=== PATIENT | male | born 1950 | race Caucasian/White ===

== ENCOUNTER → 2017-07-29 11:36 | Outpatient (CLI) | payer OTHER, SELFPAY ==
[2017-07-29 12:05] LABS: Basophils % 0.4 % (0.1-2.0); Eosinophils # 0.1 K/mm3 (0.0-0.4); Eosinophils % 1.8 % (0.1-12.0); Hematocrit 50.5 % (42.0-52.0); Hemoglobin 15.7 g/dL (14.1-18.0); Lymphocytes # 2.5 K/mm3 (0.7-4.5); Lymphocytes % 35.1 K/mm3 (10-50); Mean Corpuscular HGB Conc 31.1 g/dL (31.8-35.4); Mean Corpuscular Hemoglobin 26.3 pg (27.0-31.2); Mean Corpuscular Volume 84.5 fl (80-94); Monocytes # 0.5 K/mm3 (0.1-1.0); Monocytes % 6.7 % (1.7-9.3); Platelet Count 205 K/mm3 (142-424); Red Blood Count 5.98 M/mm3 (4.60-6.20); Red Cell Distribution Width 14.5 % (11.5-17.5); White Blood Count 7.2 K/mm3 (4.8-10.8)
[2017-07-29 13:31] LABS: Blood Urea Nitrogen 12 mg/dL (7-18); Carbon Dioxide 28 mmol/L (21.0-32.0); Chloride 103 mmol/L (98-107); Estimated Glomerular Filt Rate 61 ml/min (>60); Free Thyroxine Index 2.3 ug/dL (5.93-13.13); GFR (African American) 74 ML/MIN (>60); Glucose 98 mg/dL (74-106); Sodium 139 mmol/L (136-145); T4 (Thyroxine) 6.9 ug/dl (4.7-13.3); Thyroid Stimulating Hormone 3.58 uIU/ml (0.358-3.740); Triiodothryronine (T3) Uptake 34 % (31-39)
[2017-07-30 12:18] LABS: Testosterone,Total 631 ng/dL (264-916)
== END ==
PROVIDERS: Visit Provider Physician Assistant
DX: R94.31 Abnormal electrocardiogram [ECG] [EKG] (principal); I25.10 Atherosclerotic heart disease of native coronary artery without angina pectoris; I48.91 Unspecified atrial fibrillation; Z95.1 Presence of aortocoronary bypass graft; E78.4 Other hyperlipidemia; R53.83 Other fatigue; K21.9 Gastro-esophageal reflux disease without esophagitis
CPT/HCPCS: 36415; 80048; 84403; 84436; 84443; 84479; 85025

== ENCOUNTER → 2017-08-10 08:18 | Outpatient (CLI) | payer OTHER, SELFPAY ==
--- NOTE | 2017-08-10 08:23 | CA_ITS ---
PROCEDURE: 2-D M-mode and color Doppler study INDICATIONS FOR THE TEST: Chest pain+ COPD Heart Murmur Tobacco Smoking Palpitations Fatigue+ Syncope Edema Hypertension Diabetes Mellitus Rheumatic Fever SOB+PATEL Obesity Hyperlipidemia+ Family History HD Additional History AFIB, STENT, CABG 03/10 PATIENT INFORMATION HEIGHT: 68 WEIGHT:187 GENDER: Male B/P:140/74 2-D/M-MODE INTERPRETATION: 2-D MEASUREMENTS OBSERVED VALUES IN CMS Right Ventricular Dimension (RVDd) 1.0 Interventricular Septum (Thickness)(IVsd) 5.7 Left Ventricular Internal Dimensions(LVIDd) 1.0 Left Ventricular Posterior Wall (Thickness)(LVPWd) 1.1 Aortic Root 3.2 Aortic Cusp Separation 2.2 Left Atrial Dimensions (LAD) 4.5 2D 1. Left atrium is moderately enlarged, left ventricle is normal size, there is mild concentric left ventricular hypertrophy, visually estimated ejection fraction approximately 40-45%, there is marked hypokinesis involving the basal septum, inferobasal and posterobasal wall. 2. The right atrium and right ventricle are normal size and contractility. 3. The aortic valve is minimally thickened and fibrosed. 4. The mitral and tricuspid valve leaflets are minimally thickened. 5. The pulmonic valve is poorly visualized 6. No significant pericardial effusion noted. DOPPLER INTERROGATION: Doppler interrogation of the aortic, mitral and tricuspid valvular presence of moderate mitral and mild tricuspid regurgitation, tricuspid and jet velocity insufficient for calculation of the right ventricular systolic pressure, grade 1 diastolic dysfunction seen with tissue Doppler evidence of raised left atrial pressure. CONCLUSION: 1. Moderately enlarged left atrium, normal left ventricular size, mild concentric left ventricular hypertrophy, visually estimated ejection fraction approximately 40-45% with multiple segmental wall motion abnormality described above, grade 1 diastolic dysfunction seen with tissue Doppler evidence of raised left atrial pressure. 2. Moderate mitral and mild tricuspid regurgitation 3. No significant pericardial effusion noted.
== END ==
PROVIDERS: PCP Internal Medicine Adolescent Medicine; Visit Provider Internal Medicine
DX: R94.31 Abnormal electrocardiogram [ECG] [EKG] (principal); Z95.1 Presence of aortocoronary bypass graft; I25.10 Atherosclerotic heart disease of native coronary artery without angina pectoris; I48.91 Unspecified atrial fibrillation; K21.9 Gastro-esophageal reflux disease without esophagitis; I11.9 Hypertensive heart disease without heart failure; E78.4 Other hyperlipidemia; R07.9 Chest pain, unspecified
CPT/HCPCS: 93017; 93306

== ENCOUNTER → 2018-06-12 09:20 | Outpatient (CLI) | payer MEDICARE, SELFPAY ==
[2018-06-12 11:20] LABS: Alanine Aminotransferase 47 U/L (12-78); Albumin Level 3.6 gm/dL (3.4-5.0); Alkaline Phosphatase 94 U/L (46-116); Aspartate Amino Transferase 26 U/L (15-37); Bilirubin,Direct 0.2 mg/dL (0.0-0.2); Bilirubin,Indirect 0.5 mg/dL (0.0-0.9); Bilirubin,Total 0.7 mg/dL (0.2-1.0); Chol/HDL Ratio 3.5 (1-3.5); Cholesterol 97 mg/dL (140-200); HDL Cholesterol 28 mg/dL (27-67); LDL Cholesterol 47 mg/dL (0-130); Total Protein,Serum 7.1 gm/dL (6.4-8.2); Triglycerides 110 mg/dL (30-200); VLDL Cholesterol 22 mg/dL (0-40)
== END ==
PROVIDERS: Visit Provider Internal Medicine
DX: I11.9 Hypertensive heart disease without heart failure; I25.10 Atherosclerotic heart disease of native coronary artery without angina pectoris; I48.91 Unspecified atrial fibrillation; K21.9 Gastro-esophageal reflux disease without esophagitis; R94.31 Abnormal electrocardiogram [ECG] [EKG]; Z95.1 Presence of aortocoronary bypass graft; E78.49 Other hyperlipidemia
CPT/HCPCS: 36415; 80061; 80076

== ENCOUNTER → 2018-11-03 13:51 | Outpatient (CLI) | payer MEDICARE, OTHER, SELFPAY ==
--- NOTE | 2018-11-03 13:56 | CA_ITS ---
PROCEDURE: 2-D M-mode and color Doppler study INDICATIONS FOR THE TEST: Chest pain+ COPD Heart Murmur Tobacco Smoking Palpitations Fatigue+ Syncope Edema Hypertension+Diabetes Mellitus Rheumatic Fever SOB+PATEL Obesity Hyperlipidemia+ Family History HD Additional History CABG, AFIB, GERD, ABN EKG, MOD MR /, AFIB PATIENT INFORMATION HEIGHT: 68 WEIGHT:182 GENDER: Male B/P:139/80 2-D/M-MODE INTERPRETATION: 2-D MEASUREMENTS OBSERVED VALUES IN CMS Right Ventricular Dimension (RVDd) 2.1 Interventricular Septum (Thickness)(IVsd) 1.2 Left Ventricular Internal Dimensions(LVIDd) 5.7 Left Ventricular Posterior Wall (Thickness)(LVPWd) 1.2 Aortic Root 3.4 Aortic Cusp Separation 2.1 Left Atrial Dimensions (LAD) 4.7 2D 1. Left atrium is moderately enlarged, left ventricle is normal size, mild concentric left ventricular hypertrophy, visually estimated ejection fraction 45%, inferior basal, posterior basal and basal septal wall on dyskinetic. 2. The right atrium and right ventricle are normal size and contractility. 3. The aortic valve is thickened and calcified leaflet continue to display mobility 4. The mitral and tricuspid valve leaflets are minimally thickened. 5. The pulmonic valve is poorly visualized. 6. No significant pericardial effusion noted. DOPPLER INTERROGATION: Doppler interrogation of the aortic, mitral and tricuspid valvular presence of mild aortic, moderate mitral and mild tricuspid regurgitation tricuspid regurgitation jet velocity is inadequate for calculation of the right ventricular systolic pressure, grade 1 diastolic dysfunction seen with tissue Doppler evidence of raised left atrial pressure. CONCLUSION: 1. Moderately enlarged left atrium, normal left ventricular size, mild concentric left ventricular hypertrophy, visually estimated ejection fraction of 45% with segmental wall motion abnormality described above, grade 1 diastolic dysfunction seen with tissue Doppler evidence of raised left atrial pressure. 2. Mild aortic, moderate mitral and mild tricuspid regurgitation. 3. No significant pericardial effusion noted.
== END ==
PROVIDERS: PCP Internal Medicine Adolescent Medicine; Visit Provider Nurse Practitioner Family
DX: I11.9 Hypertensive heart disease without heart failure; I25.10 Atherosclerotic heart disease of native coronary artery without angina pectoris; I34.0 Nonrheumatic mitral (valve) insufficiency; I48.91 Unspecified atrial fibrillation; K21.9 Gastro-esophageal reflux disease without esophagitis; R06.09 Other forms of dyspnea; R42 Dizziness and giddiness; R94.31 Abnormal electrocardiogram [ECG] [EKG]; Z95.1 Presence of aortocoronary bypass graft; E78.49 Other hyperlipidemia
CPT/HCPCS: 93306

== ENCOUNTER → 2018-11-10 11:27 | Outpatient (CLI) | payer MEDICARE, OTHER, SELFPAY ==
[2018-11-10 11:48] LABS: Basophils % 0.4 % (0.1-2.0); Eosinophils # 0.1 K/mm3 (0.0-0.4); Eosinophils % 1.7 % (0.1-12.0); Hematocrit 49.2 % (42.0-52.0); Hemoglobin 16.6 g/dL (14.1-18.0); Lymphocytes # 2.2 K/mm3 (0.7-4.5); Lymphocytes % 32.8 % (10-50); Mean Corpuscular HGB Conc 33.7 g/dL (31.8-35.4); Mean Corpuscular Hemoglobin 28.1 pg (27.0-31.2); Mean Corpuscular Volume 83.3 fl (80-94); Mean Platelet Volume 7.4 fl (7.4-10.4); Monocytes # 0.5 K/mm3 (0.1-1.0); Monocytes % 6.6 % (1.7-9.3); Neutrophils % 58.5 % (37.0-80.0); Platelet Count 186 K/mm3 (142-424); Red Cell Distribution Width 13.2 % (11.5-17.5); White Blood Count 6.8 K/mm3 (4.8-10.8)
[2018-11-10 15:47] LABS: Alanine Aminotransferase 45 U/L (12-78); Albumin Level 4.1 gm/dL (3.4-5.0); Alkaline Phosphatase 99 U/L (46-116); Anion Gap 15.9 mEq/L (5-15); Aspartate Amino Transferase 29 U/L (15-37); Bilirubin,Direct 0.2 mg/dL (0.0-0.2); Bilirubin,Indirect 0.7 mg/dL (0.0-0.9); Bilirubin,Total 0.9 mg/dL (0.2-1.0); Blood Urea Nitrogen 15 mg/dL (7-18); Calcium 8.8 mg/dL (8.5-10.1); Carbon Dioxide 26 mmol/L (21.0-32.0); Chloride 103 mmol/L (98-107); Chol/HDL Ratio 3.9 (1-3.5); Cholesterol 108 mg/dL (140-200); Creatinine,Serum 1.22 mg/dL (0.70-1.30); Estimated Glomerular Filt Rate 59 ml/min (>60); Free T4 (Free Thyroxine) 1.03 ng/dl (0.76-1.46); GFR (African American) 72 ML/MIN (>60); Glucose 92 mg/dL (74-106); HDL Cholesterol 28 mg/dL (27-67); LDL Cholesterol 55 mg/dL (0-130); Potassium 4.9 mmoL/L (3.5-5.1); Sodium 140 mmol/L (136-145); Thyroid Stimulating Hormone 3.39 uIU/ml (0.358-3.740); Total Protein,Serum 7.8 gm/dL (6.4-8.2); Triglycerides 125 mg/dL (30-200); VLDL Cholesterol 25 mg/dL (0-40)
== END ==
PROVIDERS: Nurse Practitioner Family; Visit Provider Internal Medicine
DX: I11.9 Hypertensive heart disease without heart failure (principal); I25.10 Atherosclerotic heart disease of native coronary artery without angina pectoris; R06.09 Other forms of dyspnea; E78.2 Mixed hyperlipidemia
CPT/HCPCS: 36415; 80048; 80061; 80076; 84439; 84443; 85025

== ENCOUNTER → 2018-11-22 08:43 | Outpatient (CLI) | payer MEDICARE, OTHER, SELFPAY ==
[2018-11-22 08:57] LABS: Basophils % 0.5 % (0.1-2.0); Eosinophils # 0.2 K/mm3 (0.0-0.4); Eosinophils % 2.3 % (0.1-12.0); Hematocrit 47.6 % (42.0-52.0); Hemoglobin 15.7 g/dL (14.1-18.0); Mean Corpuscular Hemoglobin 29.4 pg (27.0-31.2); Mean Corpuscular Volume 89.1 fl (80-94); Mean Platelet Volume 8.2 fl (7.4-10.4); Monocytes # 0.4 K/mm3 (0.1-1.0); Monocytes % 6.2 % (1.7-9.3); Neutrophils % 61.1 % (37.0-80.0); Platelet Count 236 K/mm3 (142-424); Red Blood Count 5.34 M/mm3 (4.60-6.20); Red Cell Distribution Width 13.5 % (11.5-17.5); White Blood Count 6.6 K/mm3 (4.8-10.8)
[2018-11-22 09:01] LABS: Anion Gap 11.3 mEq/L (5-15); Blood Urea Nitrogen 16 mg/dL (7-18); Carbon Dioxide 29 mmol/L (21.0-32.0); Chloride 105 mmol/L (98-107); Creatinine,Serum 1.43 mg/dL (0.70-1.30); Estimated Glomerular Filt Rate 49 ml/min (>60); GFR (African American) 60 ML/MIN (>60); Glucose 107 mg/dL (74-106); Potassium 5.3 mmoL/L (3.5-5.1); Sodium 140 mmol/L (136-145)
== END ==
PROVIDERS: Visit Provider Internal Medicine
DX: Z95.1 Presence of aortocoronary bypass graft (principal); I25.10 Atherosclerotic heart disease of native coronary artery without angina pectoris
CPT/HCPCS: 36415; 80048; 85025

== ENCOUNTER 2018-11-23 08:54 | Outpatient (RCR) | payer MEDICARE, OTHER, SELFPAY | END 2019-02-14 13:55 | disposition home or self-care (01) | LOC: PT 08:54 | PROVIDERS: Visit Provider Internal Medicine | DX: Z95.5 Presence of coronary angioplasty implant and graft (principal) | CPT/HCPCS: 93798 ==

== ENCOUNTER → 2018-12-03 12:24 | Outpatient (CLI) | payer MEDICARE, OTHER, SELFPAY ==
[2018-12-03 15:31] LABS: Anion Gap 10.6 mEq/L (5-15); Blood Urea Nitrogen 15 mg/dL (7-18); Calcium 8.6 mg/dL (8.5-10.1); Carbon Dioxide 28 mmol/L (21.0-32.0); Chloride 103 mmol/L (98-107); Creatinine,Serum 1.32 mg/dL (0.70-1.30); Estimated Glomerular Filt Rate 54 ml/min (>60); GFR (African American) 66 ML/MIN (>60); Glucose 119 mg/dL (74-106); Potassium 4.6 mmoL/L (3.5-5.1); Sodium 137 mmol/L (136-145)
== END ==
PROVIDERS: Visit Provider Urology
DX: I11.9 Hypertensive heart disease without heart failure (principal); I25.10 Atherosclerotic heart disease of native coronary artery without angina pectoris; Z95.1 Presence of aortocoronary bypass graft
CPT/HCPCS: 36415; 80048

== ENCOUNTER → 2019-05-12 06:09 | Outpatient (CLI) | payer MEDICARE, OTHER, SELFPAY ==
--- NOTE | 2019-05-12 06:17 | CA_ITS ---
APPROVED REPORT Exam: Exercise Treadmill Technologist: kamini bella, Ht: 5 ft 8 in Wt: 190 lbs BSA: 2.00 m2 Indications: CP, SOB Medical History Medications: Metoprolol,,,,, Asa,,,,, Pantoprazole,,,,, Ramipril,,,,, Lipitor,,,,, CloPIdogrel,,,,, Ranolazine,,,,, Cardiac Risk Factors: HTN, FHX of CAD Stress Test Details Test: Manual Treadmill HR Resting HR: 74 bpm Max Heart Rate (APMHR): 154 bpm Max HR Achieved: 157 bpm Target HR (85% APMHR): 130 bpm % of APMHR: 101 Recovery HR: 142 bpm BP Resting BP: 138/71 mmHg Max BP: 186/91 mmHg Recovery BP: 172.0/80.0 mmHg ECG Resting ECG: NSR, ST-T abnormal inferiorly and laterallyPatinet had no complaints. Clinical Exercise duration: 11:45 min Highest Stage Achieved: Exercise capacity: 12.8 METs Stress ECG Conclusion Patient had no complaints. There were no arrhythmias or ectopy. Exaggeration of baseline ST-T abns. Non-diagnostic stress ECG's due to baseline abns. Images reported seperately. Test Summary REST . . . . . . . Standing REST . . . . . . . Sitting REST 25:55 0.0 0.0 74 . 138/ 71 . . Stage 1 01:00 10.0 1.7 83 . . . . Stage 1 02:00 10.0 1.7 91 . . . . Stage 1 03:00 10.0 1.7 88 . . . . Stage 2 01:00 12.0 2.5 95 . . . . Stage 2 02:00 12.0 2.5 102 . . . . Stage 2 03:00 12.0 2.5 106 . 142/ 68 . . Stage 3 01:00 14.0 3.4 117 . . . . Stage 3 02:00 14.0 3.4 128 . . . . Stage 3 03:00 14.0 3.4 133 . 154/ 70 . . Stage 4 01:00 16.0 4.2 144 . . . . Stage 4 . . . . . . . Cardiolite injected Stage 4 02:00 16.0 4.2 154 . . . . Stage 4 . . . . . . . Protocol changed to Manual Treadmill Stage 4 02:45 16.0 3.0 156 . . . Stop exercise at 11:45 RECOVERY 01:00 0.0 0.0 142 . . . . RECOVERY 02:00 0.0 0.0 121 . . . . RECOVERY 03:00 0.0 0.0 106 . . . . RECOVERY 04:00 0.0 0.0 103 . 186/ 91 . . RECOVERY 05:00 0.0 0.0 93 . 165/ 87 . . RECOVERY 06:00 0.0 0.0 91 . 160/ 83 . . RECOVERY 07:00 0.0 0.0 92 . 160/ 83 . . RECOVERY 07:17 0.0 0.0 93 . 160/ 83 . . Electronically signed by : Pee Vásquez, 05/12/2019 14:42:42
--- NOTE | 2019-05-12 06:17 | NM_ITS ---
APPROVED REPORT Exam: Nuclear Stress Test Indication: Chest pain, SOB, HTN, Family history, CAD, CABG Patient Location: Outpatient Stress Tech: Tana Moore IN Tech:Glory Garcia, ARRT, RT (R)(N) Ht: 5 ft 8 in Wt: 190 lbs HR: 65 bpm BP: 138/71 mmHg BSA: 2.00 m2 BMI: 28.8 History: Chest pain, SOB, HTN, Family history, CAD, CABG Procedure: Patient exercised on Lyle protocol 11:45 minutes and sec, resting heart rate 65 bpm, resting blood pressure 138/71 mmHg, with exercise maximum heart rate achived was 157 bpm which is Greater than 85 % of the maximum predicted heart rate and blood pressure was 154/70 mmHg. Test was stopped due to SOA and Fatigue. Patient denied any complaint of chest pain. Patient has Good exercise capacity, achieved 12.8 METs of workload on treadmill, the blood pressure response to exercise was Adequate. Electrocardiogram Resting EKG shows sinus rhythm nonspecific ST-T changes, with exercise there is additional 1.[address] segment depression noted from the baseline EKG. The EKG portion of the exercise Myoview is nondiagnostic due to baseline abnormal EKG. Cardiac Stress and Resting SPECT Images: Cardiac Stress and Resting SPECT images were obtained using technetium 99m Myoview 32.6 mCi stress and 10.74 mCi at rest. Gated SPECT with analysis of segmental wall motion and calculation of the ejection fraction also done. Cardiac stress and resting SPECT images show mild fixed defect in the inferior wall with normal contractility gated SPECT is likely secondary to soft tissue attenuation, no reversible ischemia seen. Computer derived ejection fraction is 63% with no regional wall motion abnormality, right ventricle is normal size and contractility. Conclusion: 1. The EKG portion of the exercise Myoview is negative for ischemia due to baseline abnormal EKG, patient has good exercise capacity achieved 12.8 mets of workload on treadmill, the blood pressure response to exercise was adequate, there was no exercise-induced chest discomfort. 2. No scintigraphic evidence of reversible ischemia seen computer derived ejection fraction is 63% with no regional wall motion abnormality, right ventricle is normal size and contractility. 3. Normal exercise Myoview study. Electronically signed by : Pee Vásquez, 05/12/2019 14:48:25
--- NOTE | 2019-05-12 06:22 | FL_ITS ---
PROCEDURE: FL BARIUM SWALLOW CLINICAL INDICATION: difficulty swallowing especially pills COMPARISON: No exams were available for comparison TECHNIQUE: In the upright position the patient was observed to swallow barium in both the AP and lateral view. The cervical esophagus was examined under fluoroscopy with images obtained. The patient was then placed prone in the right anterior oblique position and was observed to swallow barium with Valsalva technique . FLUOROSCOPY TIME: FINDINGS: There was no evidence of aspiration. Spot films of the cervical esophagus show minimal posterior indentation of the barium column at the C4-5 and C5-6 level secondary to moderate osteophytic spurring at these levels. This could possibly be a cause for symptoms of dysphagia to solid foods and or large pills. There was normal peristalsis. There is a small sliding hiatal hernia but there is no GE reflux seen. No filling defects or mucosal abnormalities. No masses or strictures. The fluoroscopic time was 1 minutes and 27 seconds. 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 Small sliding hiatal hernia without GE reflux. Dictated by: Dr. Maximilian Ortiz MD 05/12/2019 09:[address] Maximilian Ortiz MD in [place] 05/12/2019 09:57
--- NOTE | 2019-05-12 06:59 | HMH.ITSHM ---
Current Home Medications as stated by this patient Chandu Cloud or ambulatory services representative. []PLAVIX METOPROLOL ATORVASTATIN RENEXA OMEPRAZOLE
== END ==
PROVIDERS: PCP Internal Medicine Adolescent Medicine; Visit Provider Physician Assistant
DX: E78.2 Mixed hyperlipidemia (principal); I11.9 Hypertensive heart disease without heart failure; I20.8 Other forms of angina pectoris; I34.0 Nonrheumatic mitral (valve) insufficiency; I42.9 Cardiomyopathy, unspecified; I48.0 Paroxysmal atrial fibrillation; K21.9 Gastro-esophageal reflux disease without esophagitis; R06.09 Other forms of dyspnea; R94.31 Abnormal electrocardiogram [ECG] [EKG]; Z95.1 Presence of aortocoronary bypass graft
CPT/HCPCS: 74220; 78452; 93017; A9502

== ENCOUNTER → 2019-06-06 13:46 | Outpatient (POV) | payer MEDICARE, OTHER, SELFPAY | PROVIDERS: Visit Provider Nurse Practitioner Family | DX: Z00.00 Encounter for general adult medical examination without abnormal findings (principal) ==

== ENCOUNTER → 2020-02-04 13:46 | Outpatient (CLI) | payer MEDICARE, OTHER, SELFPAY ==
[2020-02-05 08:39] LABS: Covid-19 Nasal PCR Sendout UK Not Detected
== END ==
PROVIDERS: PCP Internal Medicine Adolescent Medicine; Visit Provider Nurse Practitioner Family
DX: Z03.818 Encounter for observation for suspected exposure to other biological agents ruled out (principal)
CPT/HCPCS: U0003

== ENCOUNTER → 2020-05-21 12:19 | Outpatient (CLI) | payer MEDICARE, OTHER, SELFPAY ==
--- NOTE | 2020-05-21 12:45 | CA_ITS ---
APPROVED REPORT EXAM: Comprehensive 2D, Doppler, and color-flow Echocardiogram Machinist Outside: Radha Raygoza RVT Ht: 5 ft 8 in Wt: 194lbs BSA: 2.02 BP: 134/68 mmHg Indications: CAD,CABG,A-FIB,ABN EKG,CM,GERD,HTN,HLD 2D Dimensions LVOT 1.78 cm (M/F) 1.5-2.5 M-Mode Dimensions RVDd 2.60 cm (0.9-2.6) LA Diam 3.78 cm (1.9-4.0) LVDd 4.59 cm (3.5-5.7) Ao Diam 2.35 cm (2.0-3.7) LVDs 3.42 cm (3.5-5.7) IVSd 0.71 cm (0.6-1.1) PWd 1.10 cm (0.6-1.1) EF (Teich) 50.30% FS 25.50% EDV (Teich) 96.80 mL ESV (Teich) 48.10 mL LV Diastology E Decel Time 210.00 (160-240 msec) E/A Ratio 0.6 MED E' 3.60 (< 7 cm/sec) E'/MED E' Ratio 12.58 (>14) LAT E' 11.50 (<10 cm/sec) E/LAT E' Ratio 3.94 (>14) Aortic Valve AI PHT 866.00 ms Mitral Valve MV E Max Marty. 45.00 (40-130 cm/s) MV A Velocity 79.00 (40-130 cm/s) E/A Ratio 0.57 MV Decel. Time 210.00 (160-240 ms) MV PHT 62.00 ms Pulmonary Valve PV Peak Velocity 64.00 (50-150 cm/s) Left Ventricle Left atrium is mildly enlarged, left ventricle is normal size, mild concentric left ventricular hypertrophy, visually estimated ejection fraction 45%, there is marked hypokinesis involving the basal septum, inferior and inferior basal wall. 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 Grade 1 diastolic dysfunction seen without tissue Doppler evidence of raise left atrial pressure. Right Ventricle Right atrium and right ventricle are mildly enlarged with normal contractility. Aortic Valve Aortic valve is minimally thickened and fibrosed, there is no aortic stenosis, there is mild aortic insufficiency. Mitral Valve Mitral valve leaflets are minimally thickened, there is mild mitral regurgitation. Tricuspid Valve Tricuspid valve is grossly normal, there is mild tricuspid regurgitation, tricuspid regurgitation jet velocity is inadequate for calculation of the right ventricular systolic pressure. Pulmonic Valve Pulmonic valve is poorly visualized. Great Vessels Aortic root is normal size. Pericardium No significant pericardial effusion noted. Conclusion 1. 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 2. Mildly enlarged right ventricle with normal contractility. 3. Mild mitral and tricuspid regurgitation. 4. No significant pericardial effusion noted. Electronically signed by : Pee Vásquez, 05/21/2020 18:13:57
[2020-05-21 13:01] LABS: Alanine Aminotransferase 31 U/L (12-78); Albumin Level 4.2 g/dl (3.5-5.0); Alkaline Phosphatase 91 U/L (38-126); Aspartate Amino Transferase 30 U/L (17-59); Bilirubin,Indirect 0.6 mg/dL (0.0-0.9); Bilirubin,Total 0.6 mg/dl (0.2-1.3); Bilirubin,Unconjugated 0.6 mg/dL (0.0-1.1); Chol/HDL Ratio 3.4 (1-3.5); Cholesterol 111 mg/dl (140-200); HDL Cholesterol 33 mg/dl (40-60); Total Protein,Serum 7.5 g/dl (6.3-8.2); Triglycerides 125 mg/dl (30-150); VLDL Cholesterol 25 mg/dL (0-40)
[2020-05-21 13:12] LABS: Direct LDL Cholesterol 56.85 mg/dL (100-129)
== END ==
PROVIDERS: PCP Internal Medicine Adolescent Medicine; Visit Provider Urology
DX: E78.5 Hyperlipidemia, unspecified (principal); I11.9 Hypertensive heart disease without heart failure; I25.10 Atherosclerotic heart disease of native coronary artery without angina pectoris; I34.0 Nonrheumatic mitral (valve) insufficiency; I42.9 Cardiomyopathy, unspecified; I48.91 Unspecified atrial fibrillation; I65.29 Occlusion and stenosis of unspecified carotid artery; R94.31 Abnormal electrocardiogram [ECG] [EKG]; Z95.1 Presence of aortocoronary bypass graft
CPT/HCPCS: 36415; 80061; 80076; 93306

== ENCOUNTER → 2020-05-31 11:43 | Outpatient (CLI) | payer MEDICARE, OTHER, SELFPAY ==
--- NOTE | 2020-05-31 11:43 | NM_ITS ---
APPROVED REPORT Exam: Nuclear Stress Test Indication: chest pain..short of breath..fatigue Patient Location: Outpatient Stress Tech: Mai Clemente NC Tech:TERRANCE Loaiza RT(R)(N) Ht: 5 ft 8 in Wt: 195 lbs HR: 77 bpm BP: 133/71 mmHg BSA: 2.02 m2 BMI: 29.6 History: chest pain..short of breath..fatigue Procedure: Patient exercised on Lyle protocol 9.15 minutes and sec, resting heart rate 77 bpm, resting blood pressure 133/71 mmHg, with exercise maximum heart rate achived was 151 bpm which is 99 % of the maximum predicted heart rate and blood pressure was 168/74 mmHg. Patient denied any complaint of chest pain. Patient has GERD exercise capacity, achieved 10.1 METs of workload on treadmill, the blood pressure response to exercise was Adequate. Electrocardiogram Resting electrocardiogram shows sinus rhythm nonspecific ST-T changes, with exercise there is additional millimeter ST segment depression noted from the baseline EKG. The EKG portion of the exercise Myoview is nondiagnostic due to baseline abnormal EKG. Cardiac Stress and Resting SPECT Images: Cardiac Stress and Resting SPECT images were obtained using technetium 99m Myoview 33.0 mCi stress and 10.70 mCi at rest. Gated SPECT for analysis of segmental wall motion and calculation of the ejection fraction also done. Cardiac stress and resting SPECT images show moderate sized area of fixed defect involving the mid inferior and posterior basal wall without significant fabio-infarct ischemia. Computer derived ejection fraction is 41% with marked hypo to akinesis involving the mid inferior, and posterior basal wall. Right ventricle is normal size and contractility. Conclusion: 1. The EKG portion of the exercise Myoview is nondiagnostic due to baseline abnormal EKG, patient has good exercise capacity achieved 10.1 mets of workload on treadmill, the blood pressure response to exercise was adequate, there was no exercise-induced chest discomfort. 2. Scintigraphic evidence nontransmural myocardial scarring involving the mid inferior and posterior basal wall without significant fabio-infarct ischemia. Computer derived ejection fraction is 41% with segmental wall motion abnormalities as described above. Right ventricle is normal size and contractility. 3. Abnormal exercise Myoview study. Electronically signed by : Pee Vásquez, 05/31/2020 16:23:14
== END ==
PROVIDERS: PCP Internal Medicine Adolescent Medicine; Visit Provider Nurse Practitioner Family
DX: E78.2 Mixed hyperlipidemia (principal); I11.9 Hypertensive heart disease without heart failure; I25.10 Atherosclerotic heart disease of native coronary artery without angina pectoris; I42.9 Cardiomyopathy, unspecified; I48.0 Paroxysmal atrial fibrillation; I65.23 Occlusion and stenosis of bilateral carotid arteries; K21.9 Gastro-esophageal reflux disease without esophagitis; R06.09 Other forms of dyspnea; R07.9 Chest pain, unspecified; R94.31 Abnormal electrocardiogram [ECG] [EKG]; Z95.1 Presence of aortocoronary bypass graft
CPT/HCPCS: 78452; 93017; A9502

== ENCOUNTER → 2020-06-11 14:53 | Outpatient (CLI) | payer MEDICARE, OTHER, SELFPAY ==
[2020-06-11 15:21] LABS: Basophils % 0.6 % (0.1-2.0); Eosinophils # 0.2 K/mm3 (0.0-0.4); Eosinophils % 2.5 % (0.1-12.0); Hematocrit 51.3 % (42.0-52.0); Hemoglobin 17.6 g/dL (14.1-18.0); Lymphocytes % 28.4 % (10-50); Mean Corpuscular HGB Conc 34.2 g/dL (31.8-35.4); Mean Corpuscular Hemoglobin 29.7 pg (27.0-31.2); Mean Corpuscular Volume 86.7 fl (80-94); Mean Platelet Volume 7.5 fl (7.4-10.4); Monocytes # 0.6 K/mm3 (0.1-1.0); Monocytes % 8.3 % (1.7-9.3); Neutrophils # 4.1 K/mm3 (1.8-7.8); Neutrophils % 60.2 % (37.0-80.0); Platelet Count 216 K/mm3 (142-424); Red Blood Count 5.92 M/mm3 (4.60-6.20); Red Cell Distribution Width 13.4 % (11.5-17.5); White Blood Count 6.9 K/mm3 (4.8-10.8)
[2020-06-11 16:22] LABS: Anion Gap 13.5 mEq/L (5-15); Blood Urea Nitrogen 20 mg/dl (9-20); Calcium 10.3 mg/dl (8.4-10.2); Carbon Dioxide 27 mmol/L (22.0-30.0); Chloride 100 mmol/L (98-107); Estimated Glomerular Filt Rate 51 ml/min (>60); GFR (African American) 61 ML/MIN (>60); Glucose 98 mg/dl (74-100); Potassium 4.5 mmoL/L (3.5-5.1); Sodium 136 mmol/L (136-145)
[2020-06-11 16:34] LABS: Coronavirus 19 IgG Antibody Negative (Negative); Coronavirus 19 IgM Antibody Negative (Negative)
== END ==
PROVIDERS: Visit Provider Nurse Practitioner Family
DX: Z01.812 Encounter for preprocedural laboratory examination; Z11.52 Encounter for screening for COVID-19; R06.09 Other forms of dyspnea; I11.9 Hypertensive heart disease without heart failure; I25.10 Atherosclerotic heart disease of native coronary artery without angina pectoris; I48.0 Paroxysmal atrial fibrillation; E78.2 Mixed hyperlipidemia; I65.23 Occlusion and stenosis of bilateral carotid arteries; Z95.1 Presence of aortocoronary bypass graft
CPT/HCPCS: 36415; 80048; 85025; 86328

== ENCOUNTER 2020-06-14 08:40 | Day surgery (SDC) | payer MEDICARE, OTHER, SELFPAY ==
[2020-06-14] VITALS (12 sets, daily range): BP systolic 83–127; BP diastolic 45–73; PULSE 59–69; RESP 16–20; TEMP 36.8; O2SAT 93–97; BMI 29.6
--- NOTE | 2020-06-14 | IR_ITS ---
APPROVED REPORT Patient Location: Outpatient Laundry Agent: TERRANCE Olivo RT (R) PROCEDURES Left heart catheterization Left ventriculogram Selective coronary angiogram Selective engagement of the left internal mammary artery to the LAD Right internal mammary angiography INDICATION Angina pectoris, Coronary artery disease, History of coronary bypass surgery (MANN to LAD with T graft supplying purported circumflex artery, ANGELITA to dominant right coronary artery), Informed consent was obtained prior to the procedure. COMPLICATIONS NONE Estimated Blood Loss: LESS THAN 10 ML TECHNIQUE One percent lidocaine used to anesthetize the right groin. The right femoral artery was accessed via the Seldinger technique and a 5 German sheath was placed in the right femoral artery. A JL 4, JR4 catheter were used to perform left heart catheterization, left ventriculogram selective coronary angiography as well as selective engagement of the left internal mammary artery and nonselective angiography of the ANGELITA graft. At the end of the procedure the patient was transferred to the postop holding area in stable condition for sheath removal. ANGIOGRAPHIC RESULTS The left main artery Has a distal 40% stenosis The left anterior descending artery Has an ostial proximal 30 to 40% stenosis with competitive flow from the MANN graft identified The circumflex artery Is nondominant and has an ostial 30 to 40% stenosis with a mid vessel 30 to 40% stenosis The right coronary artery Is a dominant vessel with stents in the proximal to mid segment which are widely patent free of in-stent restenosis with excellent proximal distal transitioning The JENKINS ventriculogram reveals Preserved at 60% The left ventricular end-diastolic pressure 10 mmHg The MANN graft to the LAD is widely patent. The purported T graft off the MANN graft is ostially occluded The ANGELITA graft to the dominant right coronary artery is proximally occluded IMPRESSION Adequate coronary revascularization as described above Preserved ejection fraction Normal left ventricular end-diastolic pressure PLAN 1. Medical management Electronically signed by : Anthony Abdi, 06/14/2020 09:52:21
== END 2020-06-14 12:59 | disposition home or self-care (01) ==
LOC: CATHLAB 08:41
PROVIDERS: PCP Internal Medicine Adolescent Medicine; Visit Provider Internal Medicine
DX: I25.118 Atherosclerotic heart disease of native coronary artery with other forms of angina pectoris (principal); I48.0 Paroxysmal atrial fibrillation; I65.23 Occlusion and stenosis of bilateral carotid arteries; I11.0 Hypertensive heart disease with heart failure; I50.30 Unspecified diastolic (congestive) heart failure; E78.5 Hyperlipidemia, unspecified; Z79.82 Long term (current) use of aspirin; Z95.5 Presence of coronary angioplasty implant and graft; Z95.1 Presence of aortocoronary bypass graft; Z79.02 Long term (current) use of antithrombotics/antiplatelets; Z79.899 Other long term (current) drug therapy; Z88.8 Allergy status to other drugs, medicaments and biological substances
CPT/HCPCS: 93459; 99152; C1725; C1769; C1894; J1644; Q9967

== ENCOUNTER 2021-01-20 07:56 | Outpatient (CLI) | payer MEDICARE, OTHER, SELFPAY ==
[2021-01-20 08:13] VITALS: BP 117/100; PULSE 73; RESP 20; TEMP 36.8; O2SAT 97
[2021-01-20 08:55] VITALS: BP 97/59; PULSE 71; RESP 16; O2SAT 95
[2021-01-20 09:28] VITALS: BP 104/61; PULSE 73; RESP 16; O2SAT 93
[2021-01-20 10:09] VITALS: BP 97/58; PULSE 71; RESP 16; O2SAT 94
[2021-01-20 10:31] VITALS: BP 97/58; PULSE 72; RESP 18; TEMP 36.7; O2SAT 92
== END 2021-01-20 10:32 | disposition home or self-care (01) ==
PROVIDERS: PCP Internal Medicine Adolescent Medicine; Visit Provider Internal Medicine Adolescent Medicine
DX: U07.1 COVID-19 (principal)
CPT/HCPCS: 96365

== ENCOUNTER → 2021-07-13 08:33 | Outpatient (CLI) | payer MEDICARE, OTHER, SELFPAY ==
[2021-07-13 09:23] LABS: Alanine Aminotransferase 29 U/L (12-78); Alkaline Phosphatase 87 U/L (38-126); Aspartate Amino Transferase 27 U/L (17-59); Bilirubin,Direct 0.3 mg/dl (0.0-0.4); Bilirubin,Indirect 0.7 mg/dL (0.0-0.9); Bilirubin,Unconjugated 0.7 mg/dL (0.0-1.1); Cholesterol 134 mg/dl (140-200); Triglycerides 201 mg/dl (30-150); VLDL Cholesterol 40 mg/dL (0-40)
[2021-07-13 09:24] LABS: Albumin Level 4.3 g/dl (3.5-5.0); Chol/HDL Ratio 4.3 (1-3.5); HDL Cholesterol 31 mg/dl (40-60); Total Protein,Serum 7.5 g/dl (6.3-8.2)
[2021-07-13 09:34] LABS: Direct LDL Cholesterol 67.53 mg/dL (100-129)
== END ==
PROVIDERS: Visit Provider Nurse Practitioner Family
DX: E78.2 Mixed hyperlipidemia (principal); I11.9 Hypertensive heart disease without heart failure; I25.10 Atherosclerotic heart disease of native coronary artery without angina pectoris; I48.0 Paroxysmal atrial fibrillation; I65.23 Occlusion and stenosis of bilateral carotid arteries; R06.09 Other forms of dyspnea; Z95.1 Presence of aortocoronary bypass graft
CPT/HCPCS: 36415; 80061; 80076

== ENCOUNTER → 2021-12-26 10:33 | Outpatient (CLI) | payer MEDICARE, OTHER, SELFPAY ==
--- NOTE | 2021-12-26 10:35 | CA_ITS ---
APPROVED REPORT EXAM: Comprehensive 2D, Doppler, and color-flow Echocardiogram Liner Checker: Aby Guillen RT(R) Ht: 5 ft 8 in Wt: 188lbs BSA: 1.99 BP: 130/84 mmHg Indications: CP, HTN, SOB, hyperlipidemia, CAD, CABG, AFIB, abn EKG, GERD 2D Dimensions LVOT 2.02 cm (M/F) 1.5-2.5 LA Volume 40.70 mL LA Volume Index 20.45 mL/m2 (M/F) 16-34 M-Mode Dimensions RVDd 2.64 cm (0.9-2.6) LA Diam 4.38 cm (1.9-4.0) LVDd 5.35 cm (3.5-5.7) Ao Diam 2.83 cm (2.0-3.7) LVDs 4.28 cm (3.5-5.7) IVSd 0.71 cm (0.6-1.1) PWd 0.89 cm (0.6-1.1) EF (Teich) 40.60% FS 20.00% EDV (Teich) 138.30 mL ESV (Teich) 82.20 mL LV Diastology E Decel Time 200.00 (160-240 msec) E/A Ratio 0.7 MED E' 6.50 (< 7 cm/sec) E'/MED E' Ratio 8.83 (>14) LAT E' 11.00 (<10 cm/sec) E/LAT E' Ratio 5.22 (>14) Aortic Valve AI PHT 462.00 ms Mitral Valve MV E Max Marty. 57.00 (40-130 cm/s) MV A Velocity 79.00 (40-130 cm/s) E/A Ratio 0.73 MV Decel. Time 200.00 (160-240 ms) MV PHT 59.00 ms Left Ventricle Left atrium is mildly enlarged, left ventricle is normal size mild concentric left ventricular hypertrophy, estimated ejection fraction 55%, there is marked hypokinesis involving the basal septum and inferior basal wall. Grade 1 diastolic dysfunction seen without tissue Doppler evidence of raise left atrial pressure. Right Ventricle Right atrium and right ventricle are normal size and contractility. Aortic Valve Aortic valve is minimally thickened and fibrosed there is no aortic stenosis or aortic insufficiency. Mitral Valve Mitral valve grossly normal, there is mild mitral regurgitation. Tricuspid Valve Tricuspid valve grossly normal, there is mild tricuspid regurgitation, tricuspid regurgitation jet velocity is inadequate for calculation of the right ventricular systolic pressure. Pulmonic Valve Pulmonic valve is poorly visualized. Great Vessels Aortic root is normal size. Inferior vena cava is poorly visualized. Pericardium No significant pericardial effusion noted. Conclusion 1. Mildly enlarged left atrium, normal left ventricular size, mild concentric left ventricular hypertrophy, estimated ejection fraction 45% with segmental wall motion abnormality described above, grade 1 diastolic dysfunction seen without tissue Doppler evidence of raise left atrial pressure. 2. Mild mitral and tricuspid regurgitation. 3. No significant pericardial effusion noted 4. Inferior vena cava is poorly visualized. Electronically signed by : Pee Vásquez MD 12/27/2021 14:09:37
== END ==
PROVIDERS: PCP Internal Medicine Adolescent Medicine; Visit Provider Physician Assistant
DX: R06.09 Other forms of dyspnea (principal)
CPT/HCPCS: 93306

== ENCOUNTER → 2022-07-11 07:55 | Outpatient (CLI) | payer MEDICARE, OTHER, SELFPAY ==
[2022-07-11 08:31] LABS: Basophils # 0.1 K/mm3 (0-0.2); Eosinophils # 0.1 K/mm3 (0.0-0.4); Eosinophils % 2.1 % (0.1-12.0); Hematocrit 47.3 % (42.0-52.0); Hemoglobin 15.8 g/dL (14.1-18.0); Lymphocytes # 1.7 K/mm3 (0.7-4.5); Lymphocytes % 29.8 % (10-50); Mean Corpuscular HGB Conc 33.4 g/dL (31.8-35.4); Mean Corpuscular Volume 89.8 fl (80-94); Mean Platelet Volume 8.2 fl (7.4-10.4); Monocytes # 0.4 K/mm3 (0.1-1.0); Monocytes % 7.3 % (1.7-9.3); Neutrophils # 3.3 K/mm3 (1.8-7.8); Neutrophils % 59.9 % (37.0-80.0); Platelet Count 207 K/mm3 (142-424); Red Blood Count 5.26 M/mm3 (4.60-6.20); Red Cell Distribution Width 13.2 % (11.5-17.5); White Blood Count 5.6 K/mm3 (4.8-10.8)
[2022-07-11 10:07] LABS: Alanine Aminotransferase 32 U/L (12-78); Albumin Level 4.3 g/dl (3.5-5.0); Alkaline Phosphatase 91 U/L (38-126); Anion Gap 9.8 mEq/L (5-15); Aspartate Amino Transferase 29 U/L (17-59); Bilirubin,Direct 0.3 mg/dl (0.0-0.4); Bilirubin,Indirect 0.5 mg/dL (0.0-0.9); Bilirubin,Total 0.8 mg/dl (0.2-1.3); Bilirubin,Unconjugated 0.6 mg/dL (0.0-1.1); Blood Urea Nitrogen 15 mg/dl (9-20); Calcium 8.9 mg/dl (8.4-10.2); Carbon Dioxide 29 mmol/L (22.0-30.0); Chloride 107 mmol/L (98-107); Chol/HDL Ratio 4.2 (1-3.5); Cholesterol 108 mg/dl (140-200); Estimated Glomerular Filt Rate 55 ml/min (>60); GFR (African American) 66 ML/MIN (>60); Glucose 105 mg/dl (74-100); HDL Cholesterol 26 mg/dl (40-60); Magnesium 2.1 mg/dl (1.6-2.3); Potassium 4.8 mmoL/L (3.5-5.1); Sodium 141 mmol/L (136-145); Total Protein,Serum 7.4 g/dl (6.3-8.2); Triglycerides 141 mg/dl (30-150); VLDL Cholesterol 28 mg/dL (0-40)
[2022-07-11 10:18] LABS: Direct LDL Cholesterol 55.41 mg/dL (100-129)
[2022-07-11 10:39] LABS: Thyroid Stimulating Hormone 4.36 uIU/mL (0.465-4.68)
[2022-07-11 10:43] LABS: Free T4 (Free Thyroxine) 0.93 ng/dl (0.78-2.19)
== END ==
PROVIDERS: PCP Internal Medicine Adolescent Medicine; Visit Provider Nurse Practitioner Family
DX: E78.2 Mixed hyperlipidemia (principal); I11.9 Hypertensive heart disease without heart failure; I25.10 Atherosclerotic heart disease of native coronary artery without angina pectoris; I34.0 Nonrheumatic mitral (valve) insufficiency; I42.9 Cardiomyopathy, unspecified; I48.0 Paroxysmal atrial fibrillation; I65.23 Occlusion and stenosis of bilateral carotid arteries; Z95.1 Presence of aortocoronary bypass graft
CPT/HCPCS: 36415; 80048; 80061; 80076; 83735; 84439; 84443; 85025

== ENCOUNTER 2023-05-26 10:19 | Outpatient (CLI) | payer MEDICARE, OTHER, SELFPAY ==
--- NOTE | 2023-05-26 10:29 | CA_ITS ---
APPROVED REPORT EXAM: Comprehensive 2D, Doppler, and color-flow Echocardiogram Compliance Clerk: Ellen Delgado CRT Ht: 5 ft 8 in Wt: 194lbs BSA: 2.02 BP: 135/72 mmHg Indications: Atrial Fibrillation, CAD, Cardiomyopathy, CABG 2D Dimensions Left Atrium 4.38 cm LVEF (Galloway's) 53.30 % LVOT 1.98 cm (M/F) 1.5-2.5 LV Volume 109.30 mL EF AP4 55.30 % EF AP2 51.4 % EF BP 53.3 % GL Strain -19.1 % M-Mode Dimensions RVDd 2.73 cm (0.9-2.6) LVDd 5.65 cm (3.5-5.7) Ao Diam 4.04 cm (2.0-3.7) LVDs 4.57 cm (3.5-5.7) IVSd 0.82 cm (0.6-1.1) PWd 0.91 cm (0.6-1.1) EF (Teich) 38.80% FS 19.10% EDV (Teich) 156.80 mL TAPSE 1.41 (<1.7) ESV (Teich) 95.90 mL LV Diastology E Decel Time 306 (160-240 msec) E/A Ratio 0.60 MED E' 5.1 (>= 7 cm/sec) MED A' 9.00 cm/s E'/MED E' Ratio 10.92 (<= 14) LAT E' 9.9 (>= 10 cm/sec) LAT A' 13.10 cm/s E/LAT E' Ratio 5.63 (<= 14) Aortic Valve AoV Peak Marty. 108.0 (50-130 cm/s) AI PHT 696.00 ms AO Peak GR. 4.70 mmHg Mitral Valve MV E Max Marty. 56.0 (40-130 cm/s) MV A Velocity 92.0 (40-130 cm/s) E/A Ratio 0.60 MV Decel. Time 306 (160-240 ms) Tricuspid Valve TR P. Velocity 232.00 cm/s RAP Estimate 10.00 mmHg RVSP 31.60 mmHg Left Ventricle The left ventricle is normal size. The left ventricular systolic function is mildly reduced. There is normal left ventricular wall thickness. Mild global hypokinesis is present. There is moderate hypokinesis of the basal septal and anteroseptal LV rosales. There is also akinesis of the basal inferoseptal and inferior LV rosales. There is possibly an aneurysm in the basal inferior LV wall. Grade 1 diastolic dysfunction is present. LVEF is 45%. Right Ventricle The right ventricle is normal size. The right ventricular systolic function is normal. Atria The left atrium size is mildly dilated. The right atrium size is mildly dilated. Aortic Valve The aortic valve is mildly thickened. There is no aortic valvular stenosis. Mild aortic regurgitation. Mitral Valve The mitral valve is mildly thickened. No evidence of mitral valve stenosis. Mild mitral regurgitation. Tricuspid Valve The tricuspid valve leaflets are thin and pliable. Trace tricuspid regurgitation. RVSP is 20-25 mmHg. Pulmonic Valve The pulmonary valve is normal in structure. Trace pulmonic regurgitation. Great Vessels The aortic root is normal in size. The ascending aorta is normal in size. IVC is normal in size and collapses >50% with inspiration. Pericardium There is no pericardial effusion. Other Information Study Quality: Fair Conclusion Mildly reduced LV systolic function (LVEF 45%). Moderate hypokinesis of the basal septal and anteroseptal LV rosales. There is also akinesis of the basal inferoseptal and inferior LV rosales. There is possibly an aneurysm in the basal inferior LV wall. Mild MR. Mild AI. Further evaluation of the inferior aneurysm presence and extent is recommended with cardiac MRI (cardiomyopathy protoocol). Electronically signed by : Louisa Persaud MD 05/27/2023 18:14:30
[2023-05-26 10:41] LABS: Basophils % 0.4 % (0.1-2.0); Eosinophils # 0.2 K/mm3 (0.0-0.4); Eosinophils % 2.2 % (0.1-12.0); Hematocrit 47.9 % (42.0-52.0); Hemoglobin 16.4 g/dL (14.1-18.0); Lymphocytes # 2.3 K/mm3 (0.7-4.5); Mean Corpuscular HGB Conc 34.1 g/dL (31.8-35.4); Mean Corpuscular Hemoglobin 31.5 pg (27.0-31.2); Mean Corpuscular Volume 92.3 fl (80-94); Mean Platelet Volume 8.5 fl (7.4-10.4); Monocytes # 0.5 K/mm3 (0.1-1.0); Monocytes % 6.6 % (1.7-9.3); Neutrophils # 4.5 K/mm3 (1.8-7.8); Neutrophils % 59.7 % (37.0-80.0); Platelet Count 194 K/mm3 (142-424); Red Blood Count 5.19 M/mm3 (4.60-6.20); Red Cell Distribution Width 13.6 % (11.5-17.5); White Blood Count 7.5 K/mm3 (4.8-10.8)
[2023-05-26 11:23] LABS: Alanine Aminotransferase 36 U/L (12-78); Alkaline Phosphatase 84 U/L (38-126); Anion Gap 8.8 mEq/L (5-15); Aspartate Amino Transferase 31 U/L (17-59); Bilirubin,Indirect 0.9 mg/dL (0.0-0.9); Bilirubin,Total 0.9 mg/dl (0.2-1.3); Bilirubin,Unconjugated 0.9 mg/dL (0.0-1.1); Blood Urea Nitrogen 18 mg/dl (9-20); Calcium 8.8 mg/dl (8.4-10.2); Carbon Dioxide 29 mmol/L (22.0-30.0); Chloride 106 mmol/L (98-107); Cholesterol 126 mg/dl (140-200); Estimated Glomerular Filt Rate 55 ml/min (>60); GFR (African American) 66 ML/MIN (>60); Glucose 100 mg/dl (74-100); HDL Cholesterol 25 mg/dl (40-60); Potassium 4.8 mmoL/L (3.5-5.1); Sodium 139 mmol/L (136-145); Total Protein,Serum 7.1 g/dl (6.3-8.2); Triglycerides 178 mg/dl (30-150); VLDL Cholesterol 36 mg/dL (0-40)
[2023-05-26 11:34] LABS: Direct LDL Cholesterol 71.13 mg/dL (100-129)
[2023-05-26 11:37] LABS: Free T4 (Free Thyroxine) 0.79 ng/dl (0.78-2.19)
[2023-05-26 11:53] LABS: Thyroid Stimulating Hormone 3.76 uIU/mL (0.465-4.68)
== END 2023-05-26 23:59 ==
LOC: RT 10:20
PROVIDERS: PCP Internal Medicine Adolescent Medicine; Visit Provider Physician Assistant
DX: R06.00 Dyspnea, unspecified (principal); E78.5 Hyperlipidemia, unspecified; I11.9 Hypertensive heart disease without heart failure; I25.10 Atherosclerotic heart disease of native coronary artery without angina pectoris; I34.0 Nonrheumatic mitral (valve) insufficiency; I42.9 Cardiomyopathy, unspecified; I48.91 Unspecified atrial fibrillation; I65.29 Occlusion and stenosis of unspecified carotid artery; R05.9 Cough, unspecified; Z95.1 Presence of aortocoronary bypass graft
CPT/HCPCS: 36415; 80048; 80061; 80076; 84439; 84443; 85025; 93306

== ENCOUNTER 2023-07-15 09:16 | Outpatient (CLI) | payer MEDICARE, OTHER, SELFPAY ==
--- NOTE | 2023-07-15 09:47 | MR_ITS ---
APPROVED REPORT Publishing Editor: CLINICAL INDICATION Cardiomyopathy evaluation TECHNIQUE Image Acquisition: Cardiac magnetic resonance (CMR) was performed on Siemens Espree MRI 1.5T scanner. Software platform sequences were performed using the Siemens Touch of [employer] MR B19 platform. A set of three-plane, low-resolution, large [id number] localizers were initially acquired. Then axial, coronal, sagittal TrueFISP, as well as axial HASTE images, were obtained. These were followed by gated TrueFISP breathold cinematic sequences obtained in the short axis with 8 mm slices and 2 mm gaps, 2-chamber (vertical long axis), 3-chamber, 4-chamber (horizontal long axis). A bolus of contrast was injected intravenously with first-pass sequences obtained in the short axis and four-chamber planes. After approximately 10 minutes, a TI wood machinist sequence was performed to determine the optimal TI time. Using the optimized TI time, delayed contrast enhancement segmented inversion???recovery TurboFLASH sequences were obtained in the short axis, 2-chamber, 3-chamber, and 4-chamber projections. 2D-velocity phase mapping was performed. Functional parameters were calculated by offline analysis on an independent workstation ([employer], [employer]). Contrast: ProHance??? (Gadoteridol) FINDINGS MORPHOLOGY AND FUNCTION Left ventricle: The left ventricle is normal in size. The indexed left ventricular end-diastolic volume (LVEDVi) is 90 ml/m2 (reference range 57-105 ml/m2 in males, 56-96 ml/m2 in females). There is moderate reduction in left ventricular systolic function present. There is normal left ventricular wall thickness, with presence of myocardial thinning noted in the basal inferior and inferoseptal LV rosales (minimum thickness 4.7 mm). There is severe hypokinesis of the basal inferior, and inferolateral LV rosales. The basal inferoseptal LV wall is akinetic and appears aneurysmal. LVEF is calculated at 39.7% (reference range 57-77%). Right ventricle: The right ventricle is normal in size. The indexed right ventricular end-diastolic volume (RVEDVi) is 68 ml/m2 (reference range 61-121 ml/m2 in males, 48-112 ml/m2 in females). There is normal right ventricular systolic function present. RVEF is calculated at 54.5% (reference range 52-72% in males, 51-71% in females). Atria: The left atrium is normal in size. The maximum indexed left atrial volume is 42 ml/m2 (reference range 26-52 ml/m2 in males, 27-53 ml/m2 in females). The right atrium is normal in size. The maximum indexed right atrial volume is 38 ml/m2 (reference range 18-90 ml/m2). Aorta: The diameter of the aortic annulus is normal, measuring 24 mm (coronal view reference range 21-30 mm in males, 19-27 mm in females). The diameter of the aortic sinus is normal, measuring 34 mm (coronal view reference range 25-42 mm in males, 24-36 mm in females). The diameter of the sinotubular junction is normal, measuring 27 mm (coronal view reference range 18-32 mm in males, 18-28 mm in females). The diameters of the ascending and descending thoracic aorta are normal. Main pulmonary artery: The main pulmonary artery diameter is normal. Pericardium: The pericardial thickness is normal. The pericardial thickness measures 1.7 cm (normal < 4.0 cm). There is no pericardial effusion. VALVES The valvular morphologies in the visualized sequences appear normal. There is no significant valvular stenosis or regurgitation of the mitral, aortic, tricuspid, or pulmonic valve noted visually. Systolic anterior motion of the mitral valve is not visualized. Ratio of pulmonary to systemic flow, Qp:Qs ratio = 1.0 (normal < or = 1.2), demonstrating no evidence of hemodynamically significant shunt. TISSUE CHARACTERIZATION Resting Perfusion: Resting hypoperfusion is present in the basal inferior, inferolateral, and inferoseptal LV rosales. Myocardial Fibrosis and/or edema: Abnormal gadolinium kinetics are present. There is presence of subendocardial late gadolinium enhancement (LGE) noted in the basal to mid inferior, inferolateral, inferoseptal, septal, and anteroseptal LV rosales. The LGE occupies > 50% of the myocardial thickness in the respective regions, thereby corresponding to presence of non-viable tissue. OTHER No other significant findings are noted. However, this exam is focused on the cardiac structure and function. IMPRESSION Normal LV size with moderate reduction in LV systolic function. LVEDVi= 90 ml/m2 and LVEF= 39.7%. Severe hypokinesis of the basal inferior, and inferolateral LV rosales. The basal inferoseptal LV wall is akinetic The basal inferoseptal LV wall is akinetic and appears aneurysmal (thinning of LV wall in the region of 4.7 mm). Normal RV size with normal RV systolic function. RVEDVi= 68 ml/m2 and RVEF= 54.5%. No atrial enlargement. Resting hypoperfusion is present in the basal inferior, inferolateral, and inferoseptal LV rosales. Subendocardial late gadolinium enhancement (LGE) noted in the basal to mid inferior, inferolateral, inferoseptal, septal, and anteroseptal LV rosales. The LGE occupies > 50% of the myocardial thickness in the respective regions, thereby corresponding to presence of non-viable tissue Ratio of pulmonary to systemic flow, Qp:Qs ratio = 1.0 (normal < or = 1.2), demonstrating no evidence of hemodynamically significant shunt. 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 COMPARISON None CRITICAL RESULT None COMMUNICATION Per this written report The findings of this cardiac MR were reviewed, reported, and signed by Garrett Persaud MD (Mimeograph Operator). Conclusion Electronically signed by : Louisa Persaud MD 07/20/2023 12:32:27
[2023-07-15 10:21] LABS: Blood Urea Nitrogen 25 mg/dl (9-20); Estimated Glomerular Filt Rate 60 ml/min (>60); GFR (African American) 72 ML/MIN (>60)
[2023-07-15] MEDS: SODIUM CHLORIDE 0.9% 50ML BAG 25 ML IV (11:15)
[2023-07-15] MEDS: SODIUM CHLORIDE 0.9% 10ML SYR (RAD ONLY) 10 ML IV (11:15)
[2023-07-15] MEDS: GADOTERIDOL INJ 17ML SYRINGE 19 ML IV (11:15)
== END 2023-07-15 23:59 ==
LOC: RAD 09:17
PROVIDERS: PCP Internal Medicine Adolescent Medicine; Visit Provider Nurse Practitioner
DX: I25.10 Atherosclerotic heart disease of native coronary artery without angina pectoris (principal); I34.0 Nonrheumatic mitral (valve) insufficiency; I51.89 Other ill-defined heart diseases; R93.1 Abnormal findings on diagnostic imaging of heart and coronary circulation; I42.8 Other cardiomyopathies; R94.31 Abnormal electrocardiogram [ECG] [EKG]
CPT/HCPCS: 36415; 75561; 82565; 84520; A9576

== ENCOUNTER 2023-08-12 14:35 | Outpatient (CLI) | payer MEDICARE, OTHER, SELFPAY ==
[2023-08-12 14:55] LABS: Basophils % 0.7 % (0.1-2.0); Eosinophils # 0.1 K/mm3 (0.0-0.4); Eosinophils % 1.7 % (0.1-12.0); Hematocrit 46.6 % (42.0-52.0); Hemoglobin 15.7 g/dL (14.1-18.0); Lymphocytes # 1.8 K/mm3 (0.7-4.5); Mean Corpuscular HGB Conc 33.7 g/dL (31.8-35.4); Mean Corpuscular Hemoglobin 30.5 pg (27.0-31.2); Mean Corpuscular Volume 90.6 fl (80-94); Mean Platelet Volume 8.8 fl (7.4-10.4); Monocytes # 0.5 K/mm3 (0.1-1.0); Monocytes % 8.7 % (1.7-9.3); Neutrophils # 3.6 K/mm3 (1.8-7.8); Neutrophils % 58.9 % (37.0-80.0); Platelet Count 168 K/mm3 (142-424); Red Blood Count 5.14 M/mm3 (4.60-6.20); Red Cell Distribution Width 12.9 % (11.5-17.5); White Blood Count 6.1 K/mm3 (4.8-10.8)
[2023-08-12 15:30] LABS: Chloride 105 mmol/L (98-107); Sodium 136 mmol/L (136-145)
[2023-08-12 15:31] LABS: Potassium 4.7 mmoL/L (3.5-5.1)
[2023-08-12 15:33] LABS: Alanine Aminotransferase 47 U/L (12-78); Alkaline Phosphatase 85 U/L (38-126); Anion Gap 9.7 mEq/L (5-15); Aspartate Amino Transferase 39 U/L (17-59); Bilirubin,Direct 0.1 mg/dl (0.0-0.4); Bilirubin,Indirect 0.4 mg/dL (0.0-0.9); Bilirubin,Total 0.5 mg/dl (0.2-1.3); Bilirubin,Unconjugated 0.4 mg/dL (0.0-1.1); Blood Urea Nitrogen 20 mg/dl (9-20); Calcium 9.2 mg/dl (8.4-10.2); Carbon Dioxide 26 mmol/L (22.0-30.0); Cholesterol 115 mg/dl (140-200); Estimated Glomerular Filt Rate 55 ml/min (>60); GFR (African American) 66 ML/MIN (>60); Glucose 98 mg/dl (74-100); Triglycerides 146 mg/dl (30-150); VLDL Cholesterol 29 mg/dL (0-40)
[2023-08-12 15:34] LABS: Albumin Level 3.8 g/dl (3.5-5.0); Chol/HDL Ratio 4.6 (1-3.5); HDL Cholesterol 25 mg/dl (40-60); Magnesium 1.8 mg/dl (1.6-2.3); Total Protein,Serum 6.6 g/dl (6.3-8.2)
[2023-08-12 15:44] LABS: Direct LDL Cholesterol 60.67 mg/dL (100-129)
== END 2023-08-12 23:59 ==
LOC: LAB 14:36
PROVIDERS: PCP Internal Medicine Adolescent Medicine; Visit Provider Internal Medicine
DX: I25.5 Ischemic cardiomyopathy (principal); I25.10 Atherosclerotic heart disease of native coronary artery without angina pectoris; I65.29 Occlusion and stenosis of unspecified carotid artery; I34.0 Nonrheumatic mitral (valve) insufficiency; I48.91 Unspecified atrial fibrillation; Z95.1 Presence of aortocoronary bypass graft; E78.5 Hyperlipidemia, unspecified; I11.9 Hypertensive heart disease without heart failure; Z79.899 Other long term (current) drug therapy
CPT/HCPCS: 36415; 80048; 80061; 80076; 83735; 85025

== ENCOUNTER 2023-12-21 13:38 | Outpatient (CLI) | payer MEDICARE, OTHER, SELFPAY ==
[2023-12-22 12:55] LABS: PSA, Free 0.45 ng/mL; Prostate Specific Ag 0.8 ng/mL (0.0-4.0)
== END 2023-12-21 23:59 | disposition home or self-care (01) ==
LOC: LAB 13:39
PROVIDERS: PCP Nurse Practitioner Family; Visit Provider Urology
DX: N40.1 Benign prostatic hyperplasia with lower urinary tract symptoms (principal); Z12.5 Encounter for screening for malignant neoplasm of prostate
CPT/HCPCS: 36415; 84153; 84154

== ENCOUNTER 2024-07-06 13:16 | Outpatient (CLI) | payer MEDICARE, OTHER, SELFPAY ==
--- NOTE | 2024-07-06 13:20 | MM_ITS ---
PROCEDURE INFORMATION: Exam: US Left Breast, Complete MG Left Diagnostic Breast Tomosynthesis Exam date and time: 07/06/2024 1:36 PM Age: 73 years old Clinical indication: Male patient with left-sided breast pain and swelling. TECHNIQUE: Imaging protocol: Complete ultrasound of all four quadrants of the left breast and the retroareolar regions, including ultrasound of the axilla when performed. Left Diagnostic tomosynthesis and 2D mammography including computer-aided detection (CAD) when performed. Unilateral or bilateral exam. COMPARISON: No relevant prior studies available. FINDINGS: MAMMOGRAPHY: Breast composition: There are scattered areas of fibroglandular density. Breast mammogram findings: There is benign glandular tissue in the left retroareolar region consistent with benign male gynecomastia. No suspicious mass or other mammographic abnormality is seen. ULTRASOUND: Breast ultrasound findings: Ultrasound of left breast in the area of pain and palpable concern demonstrates benign male gynecomastia. There is no suspicious mass, shadowing, or distortion. No axillary adenopathy. IMPRESSION: Benign male gynecomastia. Clinical management as needed is recommended. ASSESSMENT: BI-RADS Category 2: Benign.
== END 2024-07-06 23:59 | disposition home or self-care (01) ==
LOC: RAD 13:17
PROVIDERS: PCP Nurse Practitioner Family; Visit Provider Nurse Practitioner Family
DX: N64.4 Mastodynia (principal)
CPT/HCPCS: 76641; 77061; 77065; G0279

== ENCOUNTER 2024-09-02 09:34 | Outpatient (CLI) | payer MEDICARE, OTHER, SELFPAY ==
[2024-09-02 09:55] LABS: Basophils % 0.3 % (0.1-2.0); Eosinophils # 0.2 K/mm3 (0.0-0.4); Eosinophils % 3.2 % (0.1-12.0); Hematocrit 42.7 % (42.0-52.0); Hemoglobin 14.9 g/dL (14.1-18.0); Lymphocytes # 2.1 K/mm3 (0.7-4.5); Lymphocytes % 28.1 % (10-50); Mean Corpuscular HGB Conc 34.9 g/dL (31.8-35.4); Mean Corpuscular Volume 85.9 fl (80-94); Mean Platelet Volume 10.2 fl (7.4-10.4); Monocytes # 0.8 K/mm3 (0.1-1.0); Neutrophils # 4.3 K/mm3 (1.8-7.8); Neutrophils % 57.3 % (37.0-80.0); Nucleated Red Blood Cells # 0 10^3/uL; Nucleated Red Blood Cells % 0 %; Platelet Count 204 K/mm3 (142-424); Red Blood Count 4.97 M/mm3 (4.60-6.20); Red Cell Distribution Width 12.4 % (11.5-17.5); Red Cell Distribution Width-SD 38.5 fL; White Blood Count 7.5 K/mm3 (4.8-10.8)
[2024-09-02 10:33] LABS: Alanine Aminotransferase 33 U/L (12-78); Albumin Level 3.9 g/dl (3.5-5.0); Alkaline Phosphatase 89 U/L (38-126); Anion Gap 13.6 mEq/L (5-15); Aspartate Amino Transferase 29 U/L (17-59); Bilirubin,Direct 0.2 mg/dl (0.0-0.4); Bilirubin,Indirect 0.7 mg/dL (0.0-0.9); Bilirubin,Total 0.9 mg/dl (0.2-1.3); Bilirubin,Unconjugated 0.7 mg/dL (0.0-1.1); Blood Urea Nitrogen 16 mg/dl (9-20); Calcium 8.8 mg/dl (8.4-10.2); Carbon Dioxide 24 mmol/L (22.0-30.0); Chloride 102 mmol/L (98-107); Chol/HDL Ratio 3.7 (1-3.5); Cholesterol 86 mg/dl (140-200); Estimated Glomerular Filt Rate 66 ml/min (>60); GFR (African American) 80 ML/MIN (>60); Glucose 100 mg/dl (74-100); HDL Cholesterol 23 mg/dl (40-60); Magnesium 1.9 mg/dl (1.6-2.3); Potassium 4.6 mmoL/L (3.5-5.1); Sodium 135 mmol/L (136-145); Total Protein,Serum 7.3 g/dl (6.3-8.2); Triglycerides 168 mg/dl (30-150); VLDL Cholesterol 34 mg/dL (0-40)
[2024-09-02 10:44] LABS: Direct LDL Cholesterol 33.23 mg/dL (100-129)
[2024-09-02 10:50] LABS: Free T4 (Free Thyroxine) 1.04 ng/dl (0.78-2.19)
[2024-09-02 11:04] LABS: Thyroid Stimulating Hormone 3.02 uIU/mL (0.465-4.68)
== END 2024-09-02 23:59 | disposition home or self-care (01) ==
PROVIDERS: PCP Internal Medicine Adolescent Medicine; Visit Provider Nurse Practitioner Family
DX: I25.5 Ischemic cardiomyopathy (principal); I25.10 Atherosclerotic heart disease of native coronary artery without angina pectoris; I51.89 Other ill-defined heart diseases; I42.9 Cardiomyopathy, unspecified; E78.2 Mixed hyperlipidemia; I65.23 Occlusion and stenosis of bilateral carotid arteries
CPT/HCPCS: 36415; 80048; 80061; 80076; 83735; 84439; 84443; 85025

== ENCOUNTER 2024-09-20 09:35 | Outpatient (CLI) | payer MEDICARE, OTHER, SELFPAY ==
--- NOTE | 2024-09-20 09:37 | CA_ITS ---
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, coronary stents, HTN, HLD, PATEL 2D Dimensions IVSd 0.87 cm LVEF (Visual) 47.80 % PWd 0.93 cm LA Volume 63.50 mL LVDd 5.29 cm LA Volume Index 30.50 mL/m2 (M/F) 16-34 LVDs 4.01 cm Left Atrium 3.88 cm M-Mode Dimensions RVDd 2.50 cm (0.9-2.6) LA Diam 4.48 cm (1.9-4.0) LVDd 5.33 cm (3.5-5.7) LVDs 4.15 cm (3.5-5.7) IVSd 0.97 cm (0.6-1.1) PWd 1.07 cm (0.6-1.1) EF (Teich) 44.30% EPSs 1.18 cm FS 22.10% EDV (Teich) 137.10 mL TAPSE 0.80 (<1.7) ESV (Teich) 76.40 mL LV Diastology E Decel Time 257 (160-240 msec) E/A Ratio 0.71 MED A' 9.70 cm/s LAT A' 10.90 cm/s Aortic Valve MACKENZIE Index 1.21 cm2/m2 AoV Peak Marty. 119.0 (50-130 cm/s) AI PHT 636.00 ms AO Peak GR. 5.70 mmHg AO Mean GR. 2.80 (<5 mmHg) AO VTI 26.0 (18-25 cm) MACKENZIE (VTI) 2.51 (2.5-4.5 cm2) Mitral Valve MV A Velocity 84.0 (40-130 cm/s) E/A Ratio 0.71 MV Mean Gr. 1.20 (<2mmHg) Pulmonary Valve ND End VMAX 107.0 cm/s Left Ventricle The left ventricle is normal size. The left ventricular systolic function is mildly reduced. There is increased LV wall thickness. There is mild global hypokinesis present. The septal and anteroseptal LV rosales are moderately hypokinetic. The basal inferior LV wall appears aneurysmal. Grade 1 diastolic dysfunction is present. LVEF is 45%. Right Ventricle The right ventricle is normal size. The right ventricular systolic function is normal. Atria Left atrium is moderately dilated. Right atrium is moderately dilated. There is no Doppler evidence of interatrial shunt. Aortic Valve The aortic valve is mildly thickened. Mild aortic regurgitation. There is no aortic valvular stenosis. Mitral Valve The mitral valve leaflets are mildly thickened. No evidence of mitral valve stenosis. Mild aortic regurgitation. Tricuspid Valve Tricuspid valve is grossly normal in structure and function. Trace tricuspid regurgitation. There is insufficient TR jet to estimate RVSP. Pulmonic Valve The pulmonary valve is normal in structure. Mild pulmonic regurgitation. Great Vessels The aortic root is normal in size. IVC is normal in size and collapses >50% with inspiration. Pericardium There is no pericardial effusion. Other Information Study Quality: Fair Conclusion Mildly reduced LV systolic function (LVEF 45%). Basal inferior LV wall appears aneurysmal. Septal and anteroseptal LV rosales are moderately hypokinetic. Mild biatrial dilation. Mild AI, mild MR, mild PI. Electronically signed by : Louisa Persaud MD 09/25/2024 17:17:30
--- OUTSIDE RECORDS SUMMARY | 2024-09-20 09:37 | XMS_ITS | Continuity of Care Document ---
Author Organization [facility], [facility] [address] Address [address] [place] [address] Care Team Providers Care Cranberry Sorter Name Role Phone AURELIANO LOREDOAH Referring Provider SHARON SOTELO Primary Care Provider Assessment No assessment recorded. Plan of Treatment Reminders Order Date Submit Date Provider Last Modified By Organization Details Last Modified Time Details Appointments None recorded. Lab anca, serum 2024 025 [facility], [address] [place] [address], [id number], 5 02:21:06 Referral None recorded. Procedures None recorded. Surgeries None recorded. Imaging None recorded. Medication Orders gentamici n 0.1 % topical ointment 2024 025 [id number], [address] [place], [address], 5 17:55:45 Premarin 0.625 mg/gram vaginal cream 2024 025 [id number], [address] [place], [address], 5 17:55:45 Patient TargetsNo targets recorded. Patient Instructions Encounter Date Encounter Id Patient Instructions Last Modified By Organization Details Last Modified Time 09/08/2024 [id number] 1. Diagnostic Nasal Endoscopy performed in office today. Full risks, complications, and benefits of non-operative intervention have been thoroughly discussed. Understanding was expressed, informed consent given, and we will proceed with the discussed operative treatment plan. There were no questions for me at the end of the office visit. 2. Rx - Start gentamicin 0.1 % topical ointment APPLY A SMALL AMOUNT TO THE AFFECTED AREA BY TOPICAL ROUTE 2 TIMES PER DAY PRN Rx - Start Premarin 0.625 mg/gram vaginal cream APPLY A SMALL AMOUNT TO THE NASAL MUCOSA NIGHTLY BY TOPICAL ROUTE PRN 3. Ordered C-anca to rule out Wengers/granulomat osis. 4. Follow up with results. adithya Not available 09/08/2024 16:17:14 Reason for Referral None Reported. Problems No Known Problems Procedures Surgical History Date Name Laterality Status Provider Name and Address Organization Details Recorded Time Endoscopy Nasal; Diagnostic completed Sameer Johns [facility] 09/08/2024 16:15:33 Imaging Results None recorded. Procedure Notes None recorded. Medical Equipment None Reported. Allergies No known drug allergies Medications Name Sig Start Date Stop Date Status Note LastModified by Organization Details LastModified Time atorvastati n 80 mg tablet active Not Available Not Available Not Available oxybutynin chloride ER 10 mg tablet,exte nded release 24 hr active Not Available Not Available Not Available clopidogrel 75 mg tablet active Not Available Not Available Not Available spironolact one 25 mg tablet active Not Available Not Available Not Available tamsulosin 0.4 mg capsule active Not Available Not Available Not Available pantoprazol e 40 mg tablet,newton yed release active Not Available Not Available Not Available oseltamivir 75 mg capsule TAKE ONE CAPSULE BY MOUTH ONCE DAILY FOR 10 DAYS -- FINISH ALL MEDICINE -- active Not Available Not Available No t Available losartan 25 mg tablet active Not Available Not Available No t Available gentamicin 0.1 % topical ointment APPLY A SMALL AMOUNT TO THE AFFECTED AREA BY TOPICAL ROUTE 2 TIMES PER DAY PRN 2024 active Not Available Not Available Not Avai lable amoxicillin 875 mg-potassiu m clavulanate 125 mg tablet TAKE ONE TABLET BY MOUTH EVERY TWELVE HOURS FOR 10 DAYS -- FINISH ALL MEDICINE -- 08/04 completed Not Available Not Available Not Available Premarin 0.625 mg/gram vaginal cream APPLY A SMALL AMOUNT TO THE NASAL MUCOSA NIGHTLY BY TOPICAL ROUTE x 30 days 2024 active Not Available Not Available Not Avai lable metoprolol tartrate 25 mg tablet active Not Available Not Available No t Available aspirin active Not Available Not Avail able Not Available Vitals Date Recorded Body height Body mass index (BMI) Body weight Body temperature Heart rate Systolic blood pressure Diastolic blood pressure Provider Name and Address Organization Details Last Updated DateTime 5 172.72 cm 30.3 kg/m2 91667.8 8 g 97.1 [degF] 69 /min 122 mm[Hg] 67 mm[Hg] Sujey Peterson [facility] 5 15:44:29 Social History None recorded. Functional Status None recorded. Mental Status None recorded. Family History Nothing Reported. Medical History Condition Response Kidney Stones N Hyperthyroidism N Heart Arrhythmia N Emphysema N Esophagus/swallowing troubles N Glaucoma N Lung Disease N Depression N Hypothyroidism N Anesthesia Complications N Anxiety Disorder N Arthritis N Hearing Loss Y Acid Reflux (GERD) N Cancer N Stroke N Hoarseness N Alcohol Overuse/Alcohol Abuse N High Cholesterol N Liver Disease N Snoring problems N Headaches N Kidney Disease N Allergies/Hayfever N Heart Problems Y Mental handicap N Ear or Hearing Problems Y Gallbladder Disease N Migraines N Thyroid Problems N Goiter N Anemia N Immune System Disorder N Chest Pain N Stomach trouble N Heart Attack ([place]) Y Ulcers N Diabetes N Rheumatic Fever Y Bleeding Disorder N Tuberculosis N AIDS/HIV N Hyperlipidemia N Asthma N Epilepsy/Seizures N Sleep Disorder N Hepatitis N Heart Disease Y Hypertension N Past Encounters Encounter ID Performer Location Encounter Start Date Encounter Closed Date Diagnosis/Indication Diagnosis SNOMED-CT Code Diagnosis ICD10 Code Diagnosis Note [id number] KYLER LINDER MD [facility] [address] [place] [address] 09/08/2024 15:31:20 09/08/2024 16:20:53 Ulcer of nose 86529734 J34.0 08/04/24 - -1.5 x 1.5 cm non healing ulcer over anterior septum09/08 - Ulceration continues on bilateral septum; Rx- - Gentamicin ointment, Premarin ointment; C-anca screen 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 2573021 J34.2 - 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 more posteriorl y off the maxillary spine to the left resulting in 60% obstructio n bilaterall y 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 Anterior epistaxis 01793 4002 R04.0 Nasal mucosa dry 3083962 2 J34.89 Will stop Astepro, oral antihistam gina, use humidifier Dysfunctio n of eustachian tube 64739860 H69.90 Beta-adren oceptor blocking drug adverse reaction [id number] T44.7X5A Chronic nasal congestion Health Concerns Section Related Observation LastModified by Organization Detai ls LastModified Time None Recorded Concern Status LastModified by Organization Details LastModified Time None Recorded Payers Encounter Date Sequence Insurance Name Policy Number Policy Bass Covered Member ID Bass Member ID Guarantor Name 09/08/2024 1 [place] Chandu Cloud [id number] Chandu Cloud 09/08/2024 2 [employer] (MEDICARE SUPPLEMENT) Chandu Cloud [id number] Chandu Cloud Notes Date Note Type Note Provider Name and Address Organization Details Recorded Time 09/08/2024 text/html Chandu Cloud ( 73M) was seen today for the first time with Dr. Kyler Linder. He visits our office for a follow up evaluation of nasal obstruction and a non-healing ulcer over the anterior septum.Chandu reports that the ulcer is still present and his nose continues to bleed intermittently when he blows his nose. His nose is rather sore to him. - Open heart surgery in 2017 - on a beta dani and also takes an anticoagulant. KYLER LINDER MD [address] [place], [address], [facility] 09/08/2024 17:37:34
--- OUTSIDE RECORDS SUMMARY | 2024-09-20 09:37 | XMS_ITS | Data Portability ---
Author Organization [facility] Address [address] [place] [address] Care Team Providers Care Sales Warehouse Driver Name Role Phone SOLANGE MENJIVAR Referring Provider SHARON SOTELO Primary Care Provider [phone] Assessment No assessment recorded. Plan of Treatment Reminders Order Date Submit Date Provider Last Modified By Organization Details Last Modified Time Details Appointments None recorded. Lab anca, serum 2024 025 [facility], [address] [place] [address], [phone], 02:21:06 Referral None recorded. Procedures None recorded. Surgeries None recorded. Imaging None recorded. Medication Orders gentamici n 0.1 % topical ointment 2024 025 [id number], [address] [place], [address], 5 17:55:45 Premarin 0.625 mg/gram vaginal cream 2024 025 [id number], [address] [place], [address], 5 17:55:45 Patient TargetsNo targets recorded. Patient Instructions Encounter Date Encounter Id Patient Instructions Last Modified By Organization Details Last Modified Time 08/04/2024 [id number] 1. Chandu comes in today for consultation at the request of Solange Menjivar APRN for an evaluation of nasal obstruction and a nonhealing ulcer over the anterior septum. Chandu has been on antibiotics 1-2 times in the last year for sinus infection. He says he often gets bloody nasal drainage. He was currently uses simply saline. Chandu has a 1.5cm x 1.5 cm nonhealing ulcer over the anterior septum. His septum does deviate off the maxillary spine anteriorly to the right and more posteriorly off the maxillary spine to the left. He has not used prior nasal sprays and has not had any nasal cautery. I explained to him the ulcer over the septum will not heal unless we keep it continuously moist. I would recommend that he apply topical Vaseline ointment at morning and night and use some topical hand lotion throughout the day. He will also use saline. He does complain of some postnasal drainage from vasomotor rhinitis and he will use Astepro nasal spray for this but he will be careful to aim towards the top of his ear and not towards the septum especially in the area of the nonhealing ulcer. 2. Recommend stopping antihistamine to help with nasal dryness 3. Suggest patient administer antibiotic ointment in/around bilateral nostrils QD for 7 days to help with healing. 4. Recommend using humidifier at night time 5. Rx-Astepro/azelast ine nasal spray 1 sprays each nostril BID For treatment of vasomotor rhinitis 6. F/u in October 2024 for recheck [id number] Not available 08/04/2024 15:22:40 09/08/2024 [id number] 1. Diagnostic Nasal Endoscopy performed in office [...] 09/08/2024 16:17:14 Reason for Referral None Reported. Results Created Date Observation Date Name Description Value Unit Range Abnormal Flag Note LastModifiedBy Organization Detail LastModifiedTime 09/09/19 25 09/14/2024 ANCA SCREE N, REFLE X TITER anca screen NEGATI VE negati ve normal ANCA scree n uses indir ect immun ofluo resce nce to detec t antib odies to neutr ophil cytop lasmi c antig ens. A posit ricardo scree n refle xes to titer and patte rn. Patte rns inclu de cytop lasmi c (c-AN CA) and perin uclea r (p-AN CA) both of which are assoc iated with vascu litis , and atypi maile p-ANC A which is assoc iated with infla mmato ry bowel disea se and other disor ders. Not Available [facility] [address] [place], [address], 09/14/2024 02:21:06 Result Notes None recorded. Problems No Known Problems Procedures Surgical History Date Name Laterality Status Provider Name and Address Organization Details Recorded Time Endoscopy Nasal; Diagnostic completed Sameer Johns [facility] 09/08/2024 16:15:33 Imaging Results None recorded. Procedure [...] mass index (BMI) Body weight Body temperature Systolic blood pressure Diastolic blood pressure Provider Name and Address Organization Details Last Updated DateTime 172.72 cm 30.4 kg/m2 77857.4 7 g 97.3 [degF] 125 mm[Hg] 66 mm[Hg] Moustapha Gutierrez [facility] 14:32:55 Date Recorded Body height Body mass index (BMI) Body weight Body temperature Heart rate Systolic blood pressure Diastolic blood pressure Provider Name and Address Organization Details Last Updated DateTime 172.72 cm 30.3 kg/m2 13752.8 8 g 97.1 [degF] 69 /min 122 mm[Hg] 67 mm[Hg] Sujey Peterson [facility] 15:44:29 Social History None recorded. Functional Status [...] Pain N Stomach trouble N Heart Attack ([place]) Y Ulcers N Diabetes N Rheumatic Fever Y Bleeding Disorder N Tuberculosis N AIDS/HIV N Hyperlipidemia N Asthma N Epilepsy/Seizures N Sleep Disorder N Hepatitis N Heart Disease Y Hypertension N Past Encounters Encounter ID Performer Location Encounter Start Date Encounter Closed Date Diagnosis/Indication Diagnosis SNOMED-CT Code Diagnosis ICD10 Code Diagnosis Note [id number] MD [facility] [address] [place] [address] 08/04/2024 13:52:24 08/04/2024 15:18:59 Anterior epistaxis 629721847 R04.0 Ulcer of nose 96879495 J 34.0 08/04/24 - -1.5 x 1.5 cm nonhealing ulcer over anterior septum Nasal mucosa dry 8024315 2 J34.89 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 1959483 J34.2 08/04/2024 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 more posteriorl y off the maxillary spine to the left resulting in 60% obstructio n bilaterall y Vasomotor rhinitis 88826 03 J30.0 Will treat with Astepro nasal spray twice daily Dysfunctio n of eustachian tube 87890353 H69.90 [id number] KYLER LINDER MD [facility] [address] [place] [address] 09/08/2024 15:31:20 09/08/2024 16:20:53 Ulcer of nose 37146047 J34.0 08/04/24 - -1.5 x 1.5 cm non healing ulcer over anterior septum09/08 - Ulceration continues on bilateral septum; Rx- - Gentamicin ointment, Premarin ointment; C-anca screen 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 9574707 J34.2 - 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 more posteriorl y off the maxillary spine to the left resulting in 60% obstructio n bilaterall y Vasomotor rhinitis 63320 03 J30.0 Anterior epistaxis 57550 4002 R04.0 Nasal mucosa dry 7067550 2 J34.89 Will stop Astepro, oral antihistam gina, use humidifier Dysfunctio n of eustachian tube 93490118 H69.90 Beta-adren oceptor blocking drug adverse reaction 096652464 T44.7X5A Chronic nasal congestion Health Concerns Section Related Observation LastModified by Organization Detai ls LastModified Time None Recorded Concern Status LastModified by Organization Details LastModified Time None Recorded Advance Directives Directive None Recorded Payers Encounter Date Sequence Insurance Name Policy Number Policy Bass Covered Member ID Bass Member ID Guarantor Name 08/04/2024 1 [place] Chandu Cloud [id number] Chandu Cloud 08/04/2024 2 [employer] (MEDICARE SUPPLEMENT) Chandu Cloud [id number] Chandu Cloud 09/08/2024 1 [place] Chandu Cloud [id number] Chandu Cloud 09/08/2024 2 [employer] (MEDICARE SUPPLEMENT) Chandu Cloud [id number] Chandu Cloud Notes Date Note Type Note Provider Name and Address Organization Details Recorded Time 08/04/2024 text/html Chandu comes in today for consultation at the request of Solange Menjivar APRN for an evaluation of nasal obstruction and a nonhealing ulcer over the anterior septum. Chandu has been on antibiotics 1-2 times in the last year for sinus infection. He says he often gets bloody nasal drainage. He was currently uses simply saline. CALVIN MELENDEZ MD [address] [place] [address] [place], [address], [facility] 08/04/2024 15:24:15 09/08/2024 text/html Chandu Cloud ( 73M) was [...] also takes an anticoagulant. KYLER LINDER MD [address] [place] [address] [place], [address], [facility] 09/08/2024 17:37:34
--- OUTSIDE RECORDS SUMMARY | 2024-09-20 09:37 | XMS_ITS | Continuity of Care Document ---
Author Organization [facility] [address] Address [address] [place] [address] Care Team Providers Care Civil Transportation Engineer Name Role Phone MARY MENJIVAR Referring Provider [phone] SHARON SOTELO Primary Care Provider [phone] Assessment No assessment recorded. Plan of Treatment Reminders Order Date Submit Date Provider Last Modified By Organization Details Last Modified Time Details Appointments None record ed. Lab None record ed. Referral None record ed. Procedures None record ed. Surgeries None record ed. Imaging None record ed. Medication Orders None record ed. Patient TargetsNo targets recorded. Patient Instructions Encounter Date Encounter Id Patient Instructions Last Modified By Organization Details Last Modified Time 08/04/2024 [id number] 1. Chandu comes in today for consultation at the request of Mary Menjivar APRN for an evaluation of nasal [...] 6. F/u in October 2024 for recheck vasyl Not available 08/04/2024 15:22:40 Reason for Referral None Reported. Problems No Known Problems Procedures Surgical History Date Name Laterality Status Provider Name and Address Organization Details Recorded Time Endoscopy Nasal; Diagnostic completed Sameer Andreas [facility] 09/08/2024 16:15:33 Imaging Results None recorded. [...] Details Last Updated DateTime 5 172.72 cm 30.4 kg/m2 84405.4 7 g 97.3 [degF] 125 mm[Hg] 66 mm[Hg] Moustapha Gutierrez [facility] 5 14:32:55 Social History None recorded. Functional Status None recorded. Mental Status None recorded. Family History Nothing Reported. Medical History Condition Response Kidney Stones N Hyperthyroidism N Heart Arrhythmia N Emphysema N Esophagus/swallowing troubles N Glaucoma N Lung Disease N Depression N Hypothyroidism N Anesthesia Complications N Anxiety Disorder N Hearing Loss Y Arthritis N Acid Reflux (GERD) N Cancer N Stroke N Hoarseness N Alcohol Overuse/Alcohol Abuse N High Cholesterol N Snoring problems N Liver Disease N Headaches N Kidney Disease N Allergies/Hayfever N Heart Problems Y Mental handicap N Ear or Hearing Problems Y Gallbladder Disease N Migraines N Thyroid Problems N Goiter N Anemia N Chest Pain N Immune System Disorder N Stomach trouble N Heart Attack ([place]) Y Ulcers N Diabetes N Rheumatic Fever Y Bleeding Disorder N Tuberculosis N AIDS/HIV N Hyperlipidemia N Asthma N Epilepsy/Seizures N Sleep Disorder N Hepatitis N Heart Disease Y Hypertension N Past Encounters Encounter ID Performer Location Encounter Start Date Encounter Closed Date Diagnosis/Indication Diagnosis SNOMED-CT Code Diagnosis ICD10 Code Diagnosis Note [id number] MD [facility] [address] [place] [address] 08/04/2024 13:52:24 08/04/2024 15:18:59 Anterior epistaxis 202983029 R04.0 Ulcer of nose 09429397 J 34.0 08/04/24 - -1.5 x 1.5 cm nonhealing ulcer over anterior septum Nasal mucosa dry 5426019 2 J34.89 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 0009615 J34.2 08/04/2024 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 more posteriorl y off the maxillary spine to the left resulting in 60% obstructio n bilaterall y Vasomotor rhinitis 98597 03 J30.0 Will treat with Astepro nasal spray twice daily Dysfunctio n of eustachian tube 02549446 H69.90 Health Concerns Section Related Observation LastModified by Organization Detai ls LastModified Time None Recorded Concern Status LastModified by Organization Details LastModified Time None Recorded Payers Encounter Date Sequence Insurance Name Policy Number Policy Bass Covered Member ID Bass Member ID Guarantor Name 08/04/2024 1 [place] Chandu Cloud [id number] Chandu Savagechie 08/04/2024 2 [employer] (MEDICARE SUPPLEMENT) Chandu Cloud [id number] Chandu Cloud Notes Date Note Type Note Provider Name and Address Organization Details Recorded Time 08/04/2024 text/html Chandu comes in today for consultation at the request of Mary Menjivar APRN for an evaluation of nasal obstruction and a nonhealing ulcer over the anterior septum. Chandu has been on antibiotics 1-2 times in the last year for sinus infection. He says he often gets bloody nasal drainage. He was currently uses simply saline. CALVIN MELENDEZ MD [address] [place] [address], [address], [facility] 08/04/2024 15:24:15
== END 2024-09-20 23:59 | disposition home or self-care (01) ==
LOC: RT 09:35
PROVIDERS: PCP Internal Medicine Adolescent Medicine; Visit Provider Nurse Practitioner Family
DX: I25.5 Ischemic cardiomyopathy (principal); I25.10 Atherosclerotic heart disease of native coronary artery without angina pectoris; I51.89 Other ill-defined heart diseases; I65.23 Occlusion and stenosis of bilateral carotid arteries
CPT/HCPCS: 93306

== ENCOUNTER 2024-12-21 07:36 | Outpatient (CLI) | payer MEDICARE, OTHER, SELFPAY ==
--- NOTE | 2024-12-21 | CA_ITS ---
APPROVED REPORT Exam: Exercise Treadmill Technologist: Marika Clemente Ht: 5 ft 8 in Wt: 195 lbs BSA: 2.02 m2 HR: 50 bpm BP: 125/66 mmHg Stress Test Details Test: Exercise stress testing was performed using a Lyle protocol. HR Resting HR: 50 bpm Max Heart Rate (APMHR): 148.151351 bpm Max HR Achieved: 127 bpm Target HR (85% APMHR): 125.037614 bpm % of APMHR: 85.81 Recovery HR: 73 bpm BP Resting BP: 125.0/66.0 mmHg Max BP: 150.0/78.0 mmHg Recovery BP: 132.0/64.0 mmHg ECG Stress ECG Conclusion Injected at 120 beats per minute. Test stopped due to fatigue. Symptoms: Mild shortness of air. No chest pain. Arrhythmias/Ectopy: occasional PVC, bigeminy ST-T Changes: < 1.[address] changes. Electronically signed by : Louisa Persaud MD 12/21/2024 11:43:52
--- OUTSIDE RECORDS SUMMARY | 2024-12-21 07:38 | XMS_ITS | Clinical Summary ---
Author Organization Healthcare Address [address] [place] [address] Care Team Providers Care Filteration Operator Name Role Phone Unavailable Primary Care Provider Unavailabl e Family History Medical History Relation Name Comments Colon cancer Father Diabetes Mother Relation Name Status Comments Father Mother Social History Tobacco Use Types Packs/Day Years Used Date Smoking Tobacco: Never Assessed Sex and Gender Information Value Date Recorded Sex Assigned at Not on file Legal Sex Male 7:54 PM EDT Gender Identity Not on file Sexual Orientation Not on file Last Filed Vital Signs Vital Sign Reading Time Taken Comments Blood Pressure - - Pulse - - Temperature - - Respiratory Rate - - Oxygen Saturation - - Inhaled Oxygen Concentration - - Weight 79.2 kg (174 lb 9.7 oz) 04/30/2017 8:41 A M EST Height 172.7 cm (5' 8 ) 04/30/2017 8:41 AM EST Body Mass Index 26.55 04/30/2017 8:41 AM EST Plan of Treatment Health Maintenance Due Date Last Done Comments [facility]-Depression Screening 1952 [facility]-/Child/Adol SDOH Screenings 1950 [facility]- SDOH Screenings 1970 [facility]-Adult SDOH Screenings 1970 [facility]-DTaP,Tdap,and Td Vaccine s (1 - Tdap) 11/11/1971 CT Colonography 1997 Colonoscopy 1997 FIT-DNA 1997 FIT 1997 FOBT 1997 Sigmoidoscopy 1997 [facility]-Colorectal Cancer Screening 1997 [facility]-Pneumococcal Vaccine: 50 + Years (1 of 1 - PCV) 2002 [facility]-Zoster Vaccines (1 of 2) 2002 DOL-NSHXY-80 Vaccine (1 - 20 24-25 season) 2024 [facility]-Influenza Vaccine (#1) 2025 [facility]-RSV Vaccine: 60+ Years o r (1 - 1-dose 75+ series) 11/11/2027 HPV Vaccines Aged Out No longer eligi ble based on patient's age to complete this topic [facility]-HIB Vaccines Aged Out No longer e ligible based on patient's age to complete this topic [facility]-Hepatitis A Vaccines Aged Out No longer eligible based on patient's age to complete this topic [facility]-IPV Vaccines Aged Out No longer e ligible based on patient's age to complete this topic [facility]-Rotavirus Vaccines Aged Out No lo nger eligible based on patient's age to complete this topic
--- NOTE | 2024-12-21 08:00 | NM_ITS ---
APPROVED REPORT Exam: Nuclear Stress Test Indication: Chest pain, SOB, HTN, High cholesterol, Family history, CAD, CABG Patient Location: Outpatient Stress Tech: Marika Clemente [place] Tech:Glory Garcia, ARRT, RT (R)(N) Ht: 5 ft 8 in Wt: 190 lbs HR: 53 bpm BP: 125/66 mmHg BSA: 2.00 m2 TID: 1.40 BMI: 28.8 History: Chest pain, SOB, HTN, High cholesterol, Family history, CAD, CABG Procedure: Patient exercised on Lyle protocol 8:21 minutes and sec, resting heart rate 53 bpm, resting blood pressure 125/66 mmHg, with exercise maximum heart rate achived was 128 bpm which is 86 % of the maximum predicted heart rate and blood pressure was 150/78 mmHg. Test was stopped due to SOB. Patient denied any complaint of chest pain. Patient has Average exercise capacity, achieved 10.3 METs of workload on treadmill, the blood pressure response to exercise was Normal. Cardiac Stress and Resting SPECT Images: Cardiac Stress and Resting SPECT images were obtained using technetium 99m Myoview 31.1 mCi stress and 10.38 mCi at rest. Resting and stress imaging in supine and prone positions demonstrate a large sized, severe, predominantly fixed perfusion defect in the inferior, inferoseptal, and septal LV rosales. There is a small region of reversibility towards the septal LV wall. There is increase in transient ischemic dilatation ratio (TID 1.40), which may be suggestive of possible multivessel disease or balanced ischemia. Gated imaging demonstrates mild reduction in global LV systolic function. There is akinesis of the inferior LV wall. There is severe hypokinesis of the septal LV wall. LVEF is calculated at 42%. Conclusion: Large sized, severe, predominantly fixed perfusion defect in the inferior, inferoseptal, and septal LV rosales. There is a small region of reversibility towards the septal LV wall. Findings are suggestive of partial reversible ischemia. There is increase in transient ischemic dilatation ratio (TID 1.40), which may be suggestive of possible multivessel disease or balanced ischemia. Gated imaging demonstrates mild reduction in global LV systolic function. There is akinesis of the inferior LV wall. There is severe hypokinesis of the septal LV wall. LVEF is calculated at 42%. Electronically signed by : Louisa Persaud MD 12/21/2024 20:33:21
[2024-12-21] MEDS: SODIUM CHLORIDE 0.9% 10ML SYR (RAD ONLY) 10 ML IV ×2 (10:05)
[2024-12-21] MEDS: ISOTOPE MYOVIEW (PER STUDY) 1 DOSE IV (10:05)
== END 2024-12-21 23:59 | disposition home or self-care (01) ==
LOC: RAD 07:37
PROVIDERS: PCP Internal Medicine Adolescent Medicine; Visit Provider Nurse Practitioner Family
DX: I49.3 Ventricular premature depolarization (principal); R94.39 Abnormal result of other cardiovascular function study; R00.8 Other abnormalities of heart beat; I34.0 Nonrheumatic mitral (valve) insufficiency; R94.31 Abnormal electrocardiogram [ECG] [EKG]; I11.9 Hypertensive heart disease without heart failure; I25.5 Ischemic cardiomyopathy; I25.10 Atherosclerotic heart disease of native coronary artery without angina pectoris; I65.29 Occlusion and stenosis of unspecified carotid artery; E78.00 Pure hypercholesterolemia, unspecified; Z95.1 Presence of aortocoronary bypass graft
CPT/HCPCS: 78452; 93016; 93017; 93018; A9502

== ENCOUNTER 2025-01-02 08:27 | Day surgery (SDC) | payer MEDICARE, OTHER, SELFPAY ==
[2025-01-02] VITALS (18 sets, daily range): BP systolic 89–181; BP diastolic 50–90; PULSE 49–60; RESP 18–20; O2SAT 90–98; BMI 29.6
--- NOTE | 2025-01-02 06:59 | IR_ITS ---
APPROVED REPORT Patient Location: Outpatient PROCEDURES Left heart catheterization Left ventriculogram Selective coronary angiogram Selective engagement of the left internal mammary artery to the LAD INDICATION Abnormal Myoview, Angina pectoris, Known coronary artery disease with history of coronary bypass surgery, Informed consent was obtained prior to the procedure. COMPLICATIONS NONE Estimated Blood Loss: LESS THAN 10 ML TECHNIQUE One percent lidocaine used to anesthetize the right groin. The right femoral artery was accessed via the Seldinger technique and a 5 Burmese sheath was placed in the right femoral artery. A JL 4, JR4 catheter were used to perform left heart catheterization, left ventriculogram selective coronary angiography as well as selective engagement of the left internal mammary artery. At the end of the procedure the patient was transferred to the postop holding area in stable condition for sheath removal. ANGIOGRAPHIC RESULTS The left main artery Has a distal eccentric 40% stenosis The left anterior descending artery Has a stent in the ostial proximal segment which has 50% concentric in-stent restenosis with a mid vessel 50% stenosis. Competitive flow is identified from the left internal mammary artery The circumflex artery Nondominant and has an ostial 40% stenosis with a 40 to 50% stenosis in the ostial segment of the medium sized second obtuse marginal artery The right coronary artery Is dominant and has stents in the proximal to mid segment which are widely patent with minimal in-stent restenosis and excellent distal and proximal transitioning The JENKINS ventriculogram reveals Dilated ejection fraction of 40% The left ventricular end-diastolic pressure 20 mmHg MANN to LAD widely patent IMPRESSION Coronary artery disease as described above Reduced ejection fraction Elevated LVEDP PLAN 1. Medical management for coronary artery disease and LV dysfunction Electronically signed by : Anthony Abdi MD 01/02/2025 12:30:56
[2025-01-02 09:14] LABS: Chloride 101 mmol/L (98-107); Potassium 4.8 mmoL/L (3.5-5.1); Sodium 137 mmol/L (136-145)
[2025-01-02 09:17] LABS: Anion Gap 11.8 mEq/L (5-15); Blood Urea Nitrogen 18 mg/dl (9-20); Carbon Dioxide 29 mmol/L (22.0-30.0); Creatinine Clearance Estimated 70 mL/min (50-200); Creatinine,Serum 1.20 mg/dl (0.66-1.25); Estimated Glomerular Filt Rate 60 ml/min (>60); GFR (African American) 72 ML/MIN (>60); Glucose 107 mg/dl (74-100)
[2025-01-02 09:18] LABS: Calcium 9.2 mg/dl (8.4-10.2)
[2025-01-02 10:01] LABS: Hematocrit 48.3 % (42.0-52.0); Hemoglobin 16.1 g/dL (14.1-18.0); Immature Granulocytes % 0.3 %; Mean Corpuscular HGB Conc 33.3 g/dL (31.8-35.4); Mean Corpuscular Hemoglobin 28.5 pg (27.0-31.2); Mean Corpuscular Volume 85.6 fl (80-94); Nucleated Red Blood Cells % 0 %; Platelet Count 174 K/mm3 (142-424); Red Blood Count 5.64 M/mm3 (4.60-6.20); Red Cell Distribution Width-SD 38.9 fL; White Blood Count 6.8 K/mm3 (4.8-10.8)
[2025-01-02] MEDS: LIDOCAINE 1% 10ML MDV 10 ML IJ (10:51)
[2025-01-02] MEDS: HEPARIN 1,000 UNITS/500ML NS (CATH LAB) 3000 UNIT IV (10:51)
[2025-01-02] MEDS: FENTANYL 100MCG/2ML VIAL 50 MCG IV (10:52)
[2025-01-02] MEDS: MIDAZOLAM HCL 1MG/ML 5ML VIAL 1 MG IV (10:52)
[2025-01-02] MEDS: 0.9 % SODIUM CHLORIDE 500 ML 25 ML IV (10:52)
[2025-01-02] MEDS: IOPAMIDOL-370 (76%);100ML BOTTLE 60 ML IV (14:15)
== END 2025-01-02 14:29 | disposition home or self-care (01) ==
PROVIDERS: PCP Internal Medicine Adolescent Medicine; Visit Provider Internal Medicine
PROC: 4A023N7 Measurement of Cardiac Sampling and Pressure, Left Heart, Percutaneous Approach (ICD-10-PCS; CPT 93452; principal; 2025-01-02 07:15)
DX: I25.118 Atherosclerotic heart disease of native coronary artery with other forms of angina pectoris (principal); T82.855A Stenosis of coronary artery stent, initial encounter; R93.1 Abnormal findings on diagnostic imaging of heart and coronary circulation; R94.39 Abnormal result of other cardiovascular function study; I11.9 Hypertensive heart disease without heart failure; E78.2 Mixed hyperlipidemia; I65.29 Occlusion and stenosis of unspecified carotid artery; I25.5 Ischemic cardiomyopathy; I48.91 Unspecified atrial fibrillation; I34.0 Nonrheumatic mitral (valve) insufficiency; Z95.1 Presence of aortocoronary bypass graft; Z79.02 Long term (current) use of antithrombotics/antiplatelets; Z79.82 Long term (current) use of aspirin; Z79.899 Other long term (current) drug therapy; Y84.8 Other medical procedures as the cause of abnormal reaction of the patient, or of later complication, without mention of misadventure at the time of the procedure
CPT/HCPCS: 80048; 85025; 93459; 99152; C1725; C1769; C1894; J1200; J1644; J2003; J3010; J7040; Q9967

== ENCOUNTER 2025-02-23 08:12 | Outpatient (CLI) | payer MEDICARE, OTHER, SELFPAY ==
--- NOTE | 2025-02-23 08:45 | CA_ITS ---
FINAL REPORT TECHNIQUE: Arterial duplex Doppler evaluation of the right lower extremity with spectral analysis. CLINICAL HISTORY: PAIN RT GROIN SINCE CATH ON 01/02/25 FINDINGS: No evidence of pseudoaneurysm, av fistula, or thrombus in the right groin. IMPRESSION: No pseudoaneurysm, av fistula, or thrombus in the right groin. Reviewed, Interpreted and Dictated by Bishnu Henderson MD Transcribed by Rita Gardiner Authenticated and [facility]
[2025-02-23 09:45] LABS: Anion Gap 12.3 mEq/L (5-15); Blood Urea Nitrogen 19 mg/dl (9-20); Calcium 8.8 mg/dl (8.4-10.2); Carbon Dioxide 27 mmol/L (22.0-30.0); Chloride 103 mmol/L (98-107); Creatinine,Serum 1.40 mg/dl (0.66-1.25); Estimated Glomerular Filt Rate 50 ml/min (>60); GFR (African American) 60 ML/MIN (>60); Glucose 105 mg/dl (74-100); Potassium 4.3 mmoL/L (3.5-5.1); Sodium 138 mmol/L (136-145)
== END 2025-02-23 23:59 | disposition home or self-care (01) ==
LOC: RT 08:13
PROVIDERS: PCP Internal Medicine Adolescent Medicine; Visit Provider Nurse Practitioner Family
DX: I72.4 Aneurysm of artery of lower extremity (principal); I50.20 Unspecified systolic (congestive) heart failure
CPT/HCPCS: 36415; 80048; 93926